=== PATIENT | female | born 1990 | race Caucasian/White ===

== ENCOUNTER 2016-05-24 00:55 | Inpatient (IN) | payer OTHER ==
[2016-05-24] VITALS (9 sets, daily range): BP systolic 103–136; BP diastolic 54–86; PULSE 63–100; TEMP 36.7–37; O2SAT 94–97; Ht 149.9 cm; Wt 81.6 kg
[~2016-05-24] VITALS: Ht 149.9 cm; Wt 81.6 kg
[~2016-05-24 00:55] MED LIST: LEVOIUD INT UTER; OMEP40CA PO
[2016-05-24] MEDS ORDERED: SODIUM CHLORIDE 0.9% 1000ML 1,000 ML IV SCH (01:11)
[2016-05-24] MEDS ORDERED: ONDANSETRON INJ 2 MG/ML 2 ML VIAL IV STA (01:17)
[2016-05-24] MEDS ORDERED: PROMETHAZINE HCL INJ 12.5 MG in SODIUM CHLORIDE 0.9% 50ML 50 ML IV STA (01:18)
[2016-05-24] MEDS ORDERED: ASPI-390 PO (01:36)
[2016-05-24 01:58] LABS: BASO % 0.2 %; BASO ABS # 0.02 K/uL (0-0.2); COMPLETE YES; EOS % 0.9 %; HEMATOCRIT 37.5 % (37-47); IG% 0.3 %; LYMPH % 24.6 %; LYMPH ABS # 2.28 K/uL (1.2-3.4); MEAN CELL VOLUME 85.6 fL (80-100); MEAN CORPUSCULAR HEMOGLOBIN 30.1 pg (25-34); MEAN CORPUSCULAR HGB CONC 35.2 g/dl (32-36); MEAN PLATELET VOLUME 11.3 fL (7.4-10.4); MONO % 5.3 %; NEUT % 68.7 %; PLATELET COUNT 200 K/uL (130-400); RED BLOOD COUNT 4.38 M/uL (4.2-5.4); WHITE BLOOD COUNT 9.27 K/uL (4.8-10.8)
[2016-05-24 02:07] LABS: PROTHROMBIN TIME (PATIENT) 10.9 SECONDS (9.0-12.0)
[2016-05-24 02:17] LABS: URINE APPEARANCE CLEAR (CLEAR); URINE BILIRUBIN NEG (NEG); URINE COLOR YELLOW; URINE NITRITE NEG (NEG); URINE PH 7.5 (4.5-7.5); URINE SPECIFIC GRAVITY 1.012 (1.000-1.030); UROBILINOGEN NEG (NEG); ZZUR CULT IF INDIC CLEAN CATCH NO
[2016-05-24 02:18] LABS: PREG INTERNAL NEGATIVE QC NEG CLEAR BACKGROUND; PREG INTERNAL POSITIVE QC POS CONTROL LINE
[2016-05-24 02:19] LABS: ALT/SGPT 34 U/L (12-78); AST/SGOT 14 U/L (15-37); BLOOD UREA NITROGEN 13 mg/dl (7-18); CALCIUM 8.2 mg/dl (8.5-10.1); CARBON DIOXIDE 26 mmol/L (21-32); CHLORIDE 107 mmol/L (98-107); CREATININE 0.73 mg/dl (0.60-1.20); GLUCOSE 105 mg/dl (70-99); POTASSIUM 3.3 mmol/L (3.5-5.1); SODIUM 143 mmol/L (136-145)
[2016-05-24 02:20] LABS: MANUAL MICROSCOPIC REQUIRED? NO; REVIEW REQ? NO
[2016-05-24 02:29] LABS: ALB/GLOB RATIO 1.3 (0.9-2); ALKALINE PHOSPHATASE 75 U/L (45-117)
[2016-05-24 02:36] LABS: BENZODIAZEPINE, URINE NEG (NEG); COCAINE,URINE NEG (NEG); PHENCYCLIDINE, URINE NEG (NEG)
[2016-05-24] MEDS ORDERED: MoRPHine SULFATE 4 MG/ML 1 ML CARP\\VIAL IV ONE (03:00)
[2016-05-24] MEDS ORDERED: XYLOCAINE 1%/SOD BICARB 20 ML VIAL INFIL ONE (03:00)
[2016-05-24 03:30] LABS: LYME DISEASE AB IGG NEG (NEG); LYME DISEASE AB IGM NEG (NEG)
--- NOTE | 2016-05-24 03:42 | EMERGENCY ROOM VISIT NOTE ---
ED Visit Note First contact with patient: 01:05 The patient presents with a headache and a change in mental status. A lumbar puncture was felt necessary. I discussed the risks and benefits with the patient. She did consent to the procedure. Lumbar puncture: Risks and benefits of the procedure were discussed. Patient was placed seated on the stretcher. Lumbar landmarks were identified. Betadine was used for prep. Sterile drapes were applied. Using sterile technique, lidocaine was used to anesthetize the lumbar area. Using sterile technique, I was able to access the spinal canal with a 22-gauge spinal needle. There were no complications. Fluid was collected for analysis and sent to the lab. Patient tolerated the procedure well.
[2016-05-24 04:02] LABS: CSF TOTAL PROTEIN 91.8 mg/dl (15.0-45.0)
[2016-05-24 04:40] LABS: CSF APPEARANCE CLEAR; CSF COLOR COLORLESS; CSF XANTHOCHROMIC NO XANTHOCHROMIA
[2016-05-24] MEDS ORDERED: CEFTRIAXONE SOD INJ 1 GM ADDVIAL IV STA (04:42)
[2016-05-24] MEDS ORDERED: VANCOMYCIN INJ 1,000 MG in SODIUM CHLORIDE 0.9% 250ML 250 ML IV STA (04:42)
[2016-05-24] MEDS ORDERED: ACYCLOVIR SOD IV ONE (04:45)
[2016-05-24] MEDS ORDERED: DEXTROSE 5% IV ONE (04:45)
[2016-05-24] MEDS ORDERED: DEXAMETHASONE SOD INJ 10 MG/ML VIAL IV ONE (04:45)
[2016-05-24] MEDS ORDERED: CEFTRIAXONE SOD INJ 1 GM in DEXTROSE 5% ADD-VANTAGE 50ML 50 ML IV STA (05:27)
[2016-05-24] MEDS ORDERED: GLUCOSE 40% GEL 15 GM TUBE PO PRN (05:30)
[2016-05-24] MEDS ORDERED: DEXTROSE 50% 50 ML SYR IV PRN (05:30)
[2016-05-24] MEDS ORDERED: LEVOFLOXACIN / D5W 750 MG in PREMIXED IN D5W 150 ML IV SCH (05:30)
[2016-05-24] MEDS ORDERED: DiphenhydrAMINE HCL 50 MG/ML VIAL IV PRN ×2 (05:30)
[2016-05-24] MEDS ORDERED: MoRPHine SULFATE 2 MG/ML CARP IV PRN (05:30)
[2016-05-24] MEDS ORDERED: GLUCAGON FOR INJ 1 MG VIAL SQ PRN (05:30)
[2016-05-24] MEDS ORDERED: GLUCOSE 10 TABS/TUBE PO PRN (05:30)
[2016-05-24] MEDS ORDERED: ONDANSETRON INJ 2 MG/ML 2 ML VIAL IV PRN (05:30)
[2016-05-24] MEDS ORDERED: VANCOMYCIN 1GM/270ML NSS ONE (05:35)
[2016-05-24] MEDS ORDERED: LORAZEPAM 2 MG/ML 1 ML VIAL IV PRN (05:45)
[2016-05-24] MEDS ORDERED: LEVONORGESTREL IU SCH (05:45)
--- NOTE | 2016-05-24 06:18 | History and Physical ---
History & Physical Date & Time of Service: May 24, 2016 at 06:03 Chief Complaint: Confused/Vomiting Primary Care Physician: No Doctor, Assigned History of Present Illness Source: patient, parent The patient is a 25 year old female who presents to the emergency department with altered mental status noted by her family at home. The patient has had a generalized headache for about a week, but no overt signs of illness otherwise. She was noted by her 4-year-old daughter, whom she usually sleeps with, to be disoriented and not acting herself. The daughter went to see the patient's , who confirmed her mental state with altered, and called EMS. She has not had any sick contacts, or had any recent travel. The patient herself, when she initially presented to the hospital was altered, but did progress to normalization by the time of my assessment. The patient does report generalized fatigue and weakness, and some mild light sensitivity. Past Medical/Surgical History Medical Problems: (1) induced hypertension Status: Resolved (2) Vaginal delivery Status: Resolved Social History Smoking Status: Unknown if Ever Smoked Smokeless Tobacco Use: No Alcohol Use: none Drug Use: none Marital Status: Housing status: lives with family Occupational Status: employed Immunizations History of Influenza Vaccine: Yes Influenza Vaccine Date: Dec 24, 2010 History of Tetanus Vaccine?: Unknown Multi-Drug Resistant Organisms History of MDRO: No Allergies Coded Allergies: No Known Allergies (Unverified , 05/24/16) Home Medications Scheduled Levonorgestrel (Iud) (Mirena), 1 DOSE INT UTER CONTINOUS Scheduled PRN Vaqdogi-Wykqjtkulyzrz-Jkdvnkww (Excedrin Migraine), 1 DOSE PO UD PRN for Migraine Review of Systems The patient denies chest pain, palpitations, shortness of breath, cough, lower extremity swelling, vision change, hearing change, sore throat, fevers, chills, sweats, weight change, nausea, vomiting, abdominal pain, pelvic pain, blood in urine or stool, dysuria, urinary frequency or urgency, memory loss, rash, abnormal bruising or bleeding, imbalance, focal weakness, numbness or tingling in arms or legs, arthralgias or myalgias, back or neck pain, night sweats, or allergy symptoms. The review of systems is otherwise negative other than for that already noted above, and at least 10 systems have been reviewed. Physical Exam Vital Signs Date Time Temp Pulse Resp B/P Pulse Ox O2 Delivery O2 Flow Rate FiO2 05/24/16 05:26 96 05/24/16 05:00 102 20 135/85 98 Room Air 05/24/16 04:01 94 20 118/74 97 Room Air 05/24/16 02:56 102 20 137/87 98 Room Air 05/24/16 01:44 108 20 144/98 98 Room Air 05/24/16 01:33 98 Room Air 05/24/16 01:24 117 05/24/16 01:14 36.9 116 20 139/91 98 Room Air The patient is awake, well-developed and adequately nourished, alert and oriented 3, normocephalic and atraumatic, lying in bed and in no acute distress. HEENT--PERRL, EOMI, mucous membranes and oropharynx dry. Neck--supple, no JVD or bruits, thyroid normal, trachea midline, no adenopathy. Heart--normal S1 and S2, no extra beats, no murmurs, rubs or gallops. Lungs--clear bilaterally with good air movement, no respiratory distress, no accessory muscle use. Abdomen--normal bowel sounds and soft, nontender and nondistended, no hernias or masses, no organomegaly. Extremities--no cyanosis, clubbing or edema. There are good distal pulses b/l. Dermatologic--normal skin turgor, normal color, warm and dry, no abnormal lymph nodes, no rash. Neurologic--cranial nerves II through XII grossly intact, motor and sensory examination normal. Rheumatologic--normal range of motion, nontender, muscles and joints. Psychiatric--normal affect. Diagnostics Laboratory Results Results Past 24 Hours Test 05/24/16 01:11 05/24/16 01:45 05/24/16 02:05 05/24/16 03:35 Range/Units Creatine Kinase MB Ratio 0-3.0 White Blood Count 9.27 4.8-10.8 K/uL Red Blood Count 4.38 4.2-5.4 M/uL Hemoglobin 13.2 12.0-16.0 g/dL Hematocrit 37.5 37-47 % Mean Corpuscular Volume 85.6 80-100 fL Mean Corpuscular Hemoglobin 30.1 25-34 pg Mean Corpuscular Hemoglobin Concent 35.2 32-36 g/dl Platelet Count 200 130-400 K/uL Mean Platelet Volume 11.3 7.4-10.4 fL Neutrophils (%) (Auto) 68.7 % Lymphocytes (%) (Auto) 24.6 % Monocytes (%) (Auto) 5.3 % Eosinophils (%) (Auto) 0.9 % Basophils (%) (Auto) 0.2 % Neutrophils # (Auto) 6.37 1.4-6.5 K/uL Lymphocytes # (Auto) 2.28 1.2-3.4 K/uL Monocytes # (Auto) 0.49 0.11-0.59 K/uL Eosinophils # (Auto) 0.08 0-0.5 K/uL Basophils # (Auto) 0.02 0-0.2 K/uL RDW Standard Deviation 39.3 36.4-46.3 fL RDW Coefficient of Variation 12.6 11.5-14.5 % Immature Granulocyte % (Auto) 0.3 % Immature Granulocyte # (Auto) 0.03 0.00-0.02 K/uL Prothrombin Time 10.9 9.0-12.0 SECONDS Prothromb Time International Ratio 1.0 0.9-1.1 Activated Partial Thromboplast Time 26.8 21.0-31.0 SECONDS Partial Thromboplastin Ratio 1.0 Sodium Level 143 136-145 mmol/L Potassium Level 3.3 3.5-5.1 mmol/L Chloride Level 107 98-107 mmol/L Carbon Dioxide Level 26 21-32 mmol/L Anion Gap 10.0 3-11 mmol/L Blood Urea Nitrogen 13 7-18 mg/dl Creatinine 0.73 0.60-1.20 mg/dl Est Creatinine Clear Calc Drug Dose 106.2 ml/min Estimated GFR () 131.7 Estimated GFR (Non- 113.7 BUN/Creatinine Ratio 18.0 10-20 Random Glucose 105 70-99 mg/dl Calcium Level 8.2 8.5-10.1 mg/dl Total Bilirubin 0.2 0.2-1 mg/dl Aspartate Amino Transf (AST/SGOT) 14 15-37 U/L Alanine Aminotransferase (ALT/SGPT) 34 12-78 U/L Alkaline Phosphatase 75 45-117 U/L Total Creatine Kinase 60 26-192 U/L Creatine Kinase MB < 0.5 0.5-3.6 ng/ml Troponin I < 0.015 0-0.045 ng/ml Total Protein 6.8 6.4-8.2 gm/dl Albumin 3.8 3.4-5.0 gm/dl Globulin 3.0 2.5-4.0 gm/dl Albumin/Globulin Ratio 1.3 0.9-2 Thyroid Stimulating Hormone (TSH) 3.800 0.300-4.500 uIu/ml Ethyl Alcohol mg/dL < 3.0 0-3 mg/dl Lyme Disease IgG Antibody NEG NEG Lyme Disease IgM Antibody NEG NEG Urine Color YELLOW Urine Appearance CLEAR CLEAR Urine pH 7.5 4.5-7.5 Urine Specific [place] 1.012 1.000-1.030 Urine Protein NEG NEG Urine Glucose (UA) NEG NEG Urine Ketones NEG NEG Urine Occult Blood NEG NEG Urine Nitrite NEG NEG Urine Bilirubin NEG NEG Urine Urobilinogen NEG NEG Urine Leukocyte Esterase NEG NEG Urine Test NEG NEG Urine Opiates Screen NEG NEG Urine Methadone, Qualitative NEG NEG Urine Barbiturates NEG NEG Urine Phencyclidine (PCP) Level NEG NEG Ur Amphetamine/Methamphetamine NEG NEG MDMA (Ecstasy) Screen NEG NEG Urine Benzodiazepines Screen NEG NEG Urine Cocaine Metabolite NEG NEG Urine Marijuana (THC) NEG NEG CSF Color COLORLESS CSF Appearance CLEAR CSF WBC 48 0-5 /uL CSF RBC 0 0 /uL CSF Polynuclear WBCs 0.0 % CSF Mononuclear WBCs 100.0 % CSF Xanthrochromic NO XANTHOCHROMIA CSF Cell Count Tube # 4 CSF Chemistry Tube # 2 CSF Glucose 52 40-70 mg/dl CSF Total Protein 91.8 15.0-45.0 mg/dl Test 05/24/16 05:44 Range/Units Microbiology Results 05/24/16 Gram Stain - Preliminary, Resulted 05/24/16 CSF Culture, Resulted Pending Diagnostic Radiology CT of the head was normal. Impression Assessment and Plan Meningitis--the patient will be admitted to the intensive care unit. She'll be placed on vancomycin IV per renal dosing, ceftriaxone 2 g IV every 12 hours, levofloxacin 750 mg IV every 24 hours, Decadron 6 mg IV every 6 hours, acyclovir 790 mg IV every 8 hours, Zofran 4 mg IV every 6 hours when necessary, Protonix 40 mg IV daily, acetaminophen 1 g IV every 8 hours when necessary, morphine sulfate 2-4 mg IV each hours when necessary, and normal saline with KCl 20 mEq at 100 ML's per hour. We'll follow serial CBC with differential, BMP , LFTs and magnesium level. We'll consult neurology, infectious disease and the shipping point inspector service. I have ordered an MRI of the brain with and without IV contrast. We'll place on Accu-Cheks before meals and at bedtime with NovoLog coverage due to possible hyperglycemia generated by IV Decadron. Left maxillary sinusitis--the patient has not been symptomatic, and will be covered with the above treatment. Hyperglycemia--blood sugar was 105 on admission laboratories. She'll be placed on Accu-Cheks before meals and at bedtime with NovoLog coverage as noted above. Hypokalemia--potassium level was 3.3 upon admission. She'll be placed on IV fluids as noted above, and will have repeat laboratories performed in the a.m. Level of Care Critical Care Advanced Directives Existing Advance Directive: No Existing Living Will: No Existing Power of Alternative Financing Specialist: No Resuscitation Status FULL RESUSCITATION VTE Prophylaxis Risk Level: Moderate Given or contraindicated: SCD's Social Service Consult None Apply Note Total Time: Critical Care 30 - 74 minutes
[2016-05-24] MEDS ORDERED: VANCOMYCIN CONSULT ACTIVE PRN (06:45)
[2016-05-24] MEDS: MoRPHine SULFATE 4 MG/ML 1 ML CARP\\VIAL IV PRN ×2 (06:56→16:53)
--- NOTE | 2016-05-24 07:03 | EMERGENCY ROOM VISIT NOTE ---
History First contact with patient: 01:05 Chief Complaint: CONFUSION Stated Complaint: CONFUSED/VOMITING Nursing Triage Summary: Patient arrived to ED via ALS for altered mental status. Per family, patient sleeps with 4 year old daughter. Patient awoke around 2350 and was noted to be confused, not acting appropriately, staring, and stated that she could not feel her right leg and that it was numb. Upon arrival, patient exhibited slurred speak. Patient is shaky at this time. Patient moving all exrtremitied. Weakness noted in bilateral legs. Patient is not acting appropriately, very slow to respond to questions. Vomiting upon arrival to ED. Per family, patient has uncontrolled HTN and is non-compliant with medications, states that she has a constant headache from BP, states that she is taking tylenol/ibuprofen hourly. History of Present Illness The patient is a 25 year old female who presents to the Emergency Room for evaluation of altered mental status. The patient typically sleeps with her 4- year-old daughter, and the daughter awoke around 90 minutes prior to arrival, and noted her mom to be not responsive. The daughter got her father, and the patient was slurring her speech and had weakness on the right side of her body. The patient was initially placed into the family vehicle who started to drive towards the hospital, however the patient had worsening of her symptoms and had several episodes of emesis. At that point they stopped and contacted 911, and the patient presents now by ambulance. The patient on presentation is quite confused and answers questions with one-word answers. She does not have appreciable facial droop or extremity weakness. Family members assist in the history and do not report recent travel history or illness. No recent sick contacts. The patient is reportedly otherwise healthy, but has had a migraine headache for the past week to week and a half. She has been taking NSAIDs at home for this with only minimal improvement. Review of Systems More than 10 systems were reviewed and otherwise negative with the exception of history of present illness. Past Medical/Surgical History Medical Problems: (1) Altered mental status (2) Meningitis (3) induced hypertension (4) Vaginal delivery Family History No pertinent family history Social History Smoking Status: Unknown if Ever Smoked Smokeless Tobacco Use: No Alcohol Use: none Drug Use: none Marital Status: Housing Status: lives with family Occupation Status: employed Current/Historical Medications Scheduled Levonorgestrel (Iud) (Mirena), 1 DOSE INT UTER CONTINOUS Scheduled PRN Wizjlwb-Jqxtbonuvzoje-Zxwhqyuy (Excedrin Migraine), 1 DOSE PO UD PRN for Migraine Allergies Coded Allergies: No Known Allergies (Unverified , 05/24/16) Physical Exam Vital Signs Date Time Temp Pulse Resp B/P Pulse Ox O2 Delivery O2 Flow Rate FiO2 05/24/16 06:00 104 20 114/71 96 Room Air 05/24/16 05:26 96 05/24/16 05:00 102 20 135/85 98 Room Air 05/24/16 04:01 94 20 118/74 97 Room Air 05/24/16 02:56 102 20 137/87 98 Room Air 05/24/16 01:44 108 20 144/98 98 Room Air 05/24/16 01:33 98 Room Air 05/24/16 01:24 117 05/24/16 01:14 36.9 116 20 139/91 98 Room Air Physical Exam VITALS: Vitals are noted on the nurse's note and reviewed by myself. Vital signs stable. GENERAL: Very confused appearing white female. She has difficulty with responding to simple questions. HEAD: Normocephalic atraumatic. EARS: External ear normal. External auditory canals clear, tympanic membranes pearly eller without erythema or effusion bilaterally. EYES: Pupils equal round and reactive to light and accommodation. Conjunctivae without injection, sclerae without icterus. Extraocular movements intact. NOSE: Patent, turbinates without inflammation or discharge. MOUTH: Mucous membranes moist. Tonsils are not enlarged. Pharynx without erythema, blood, or exudate. Uvula midline. Airway patent. NECK: Supple without nuchal rigidity. No lymphadenopathy. No thyromegaly. Cervical spine is not reportedly tender HEART: Regular rate and rhythm without murmurs gallops or rubs. LUNGS: Clear to auscultation bilaterally without wheezes, rales or rhonchi. No retractions or accessory muscle use. ABDOMEN: Positive normal bowel sounds x 4. Soft, nontender, without masses or organomegaly. No guarding or rebound tenderness. MUSCULOSKELETAL: No muscle atrophy, erythema, or edema noted. No obvious extremity weakness. Mechanic Sound Technician strength is 2/5 bilateral. NEURO: Patient was confused and not oriented to person, place, or time. GCS 12. ([id number]) SKIN: The skin was without rashes, erythema, edema, or bruising. Capillary reflex less than 2 seconds. Medical Decision & Procedures ER Provider Diagnostic Interpretation: Preliminary Findings Only See Final Report For Complete Findings CT HEAD: Comparison: CT dated 10/05/2012. No evidence of acute intracranial abnormality. Air-fluid level in the left maxillary sinus suspicious for acute sinusitis. Correlate clinically. Laboratory Results 05/24/16 01:45 Red Blood Count 4.38, Mean Corpuscular Volume 85.6, Mean Corpuscular Hemoglobin 30.1, Mean Corpuscular Hemoglobin Concent 35.2, Mean Platelet Volume 11.3, Neutrophils (%) (Auto) 68.7, Lymphocytes (%) (Auto) 24.6, Monocytes (%) (Auto) 5.3, Eosinophils (%) (Auto) 0.9, Basophils (%) (Auto) 0.2, Neutrophils # (Auto) 6.37, Lymphocytes # (Auto) 2.28, Monocytes # (Auto) 0.49, Eosinophils # (Auto) 0.08, Basophils # (Auto) 0.02 05/24/16 01:45 Test 05/24/16 01:45 05/24/16 02:05 05/24/16 03:35 White Blood Count 9.27 K/uL (4.8-10.8) Red Blood Count 4.38 M/uL (4.2-5.4) Hemoglobin 13.2 g/dL (12.0-16.0) Hematocrit 37.5 % (37-47) Mean Corpuscular Volume 85.6 fL (80-100) Mean Corpuscular Hemoglobin 30.1 pg (25-34) Mean Corpuscular Hemoglobin Concent 35.2 g/dl (32-36) Platelet Count 200 K/uL (130-400) Mean Platelet Volume 11.3 fL (7.4-10.4) Neutrophils (%) (Auto) 68.7 % Lymphocytes (%) (Auto) 24.6 % Monocytes (%) (Auto) 5.3 % Eosinophils (%) (Auto) 0.9 % Basophils (%) (Auto) 0.2 % Neutrophils # (Auto) 6.37 K/uL (1.4-6.5) Lymphocytes # (Auto) 2.28 K/uL (1.2-3.4) Monocytes # (Auto) 0.49 K/uL (0.11-0.59) Eosinophils # (Auto) 0.08 K/uL (0-0.5) Basophils # (Auto) 0.02 K/uL (0-0.2) RDW Standard Deviation 39.3 fL (36.4-46.3) RDW Coefficient of Variation 12.6 % (11.5-14.5) Immature Granulocyte % (Auto) 0.3 % Immature Granulocyte # (Auto) 0.03 K/uL (0.00-0.02) Prothrombin Time 10.9 SECONDS (9.0-12.0) Prothromb Time International Ratio 1.0 (0.9-1.1) Activated Partial Thromboplast Time 26.8 SECONDS (21.0-31.0) Partial Thromboplastin Ratio 1.0 Anion Gap 10.0 mmol/L (3-11) Est Creatinine Clear Calc Drug Dose 106.2 ml/min Estimated GFR () 131.7 Estimated GFR (Non- 113.7 BUN/Creatinine Ratio 18.0 (10-20) Calcium Level 8.2 mg/dl (8.5-10.1) Magnesium Level 1.7 mg/dl (1.8-2.4) Total Bilirubin 0.2 mg/dl (0.2-1) Aspartate Amino Transf (AST/SGOT) 14 U/L (15-37) Alanine Aminotransferase (ALT/SGPT) 34 U/L (12-78) Alkaline Phosphatase 75 U/L (45-117) Total Creatine Kinase 60 U/L (26-192) Creatine Kinase MB < 0.5 ng/ml (0.5-3.6) Creatine Kinase MB Ratio (0-3.0) Troponin I < 0.015 ng/ml (0-0.045) Total Protein 6.8 gm/dl (6.4-8.2) Albumin 3.8 gm/dl (3.4-5.0) Globulin 3.0 gm/dl (2.5-4.0) Albumin/Globulin Ratio 1.3 (0.9-2) Thyroid Stimulating Hormone (TSH) 3.800 uIu/ml (0.300-4.500) Ethyl Alcohol mg/dL < 3.0 mg/dl (0-3) Lyme Disease IgG Antibody NEG (NEG) Lyme Disease IgM Antibody NEG (NEG) Urine Color YELLOW Urine Appearance CLEAR (CLEAR) Urine pH 7.5 (4.5-7.5) Urine Specific [place] 1.012 (1.000-1.030) Urine Protein NEG (NEG) Urine Glucose (UA) NEG (NEG) Urine Ketones NEG (NEG) Urine Occult Blood NEG (NEG) Urine Nitrite NEG (NEG) Urine Bilirubin NEG (NEG) Urine Urobilinogen NEG (NEG) Urine Leukocyte Esterase NEG (NEG) Urine Test NEG (NEG) Urine Opiates Screen NEG (NEG) Urine Methadone, Qualitative NEG (NEG) Urine Barbiturates NEG (NEG) Urine Phencyclidine (PCP) Level NEG (NEG) Ur Amphetamine/Methamphetamine NEG (NEG) MDMA (Ecstasy) Screen NEG (NEG) Urine Benzodiazepines Screen NEG (NEG) Urine Cocaine Metabolite NEG (NEG) Urine Marijuana (THC) NEG (NEG) CSF Color COLORLESS CSF Appearance CLEAR CSF WBC 48 /uL (0-5) CSF RBC 0 /uL (0) CSF Polynuclear WBCs 0.0 % CSF Mononuclear WBCs 100.0 % CSF Xanthrochromic NO XANTHOCHROMIA CSF Cell Count Tube # 4 CSF Chemistry Tube # 2 CSF Glucose 52 mg/dl (40-70) CSF Total Protein 91.8 mg/dl (15.0-45.0) Medications Administered Medications (Trade) Dose Ordered Sig/Joshua Route Start Time Stop Time Status Last Admin Dose Admin Sodium Chloride 1,000 ml @ 50 mls/hr Q20H IV 05/24/16 01:11 05/24/16 06:33 DC 05/24/16 01:10 50 MLS/HR Promethazine HCl/ Sodium Chloride (Phenergan Inj/ Nss 50ml) 50.5 ml @ 204 mls/hr NOW STAT IV 05/24/16 01:18 05/24/16 01:32 DC 05/24/16 01:10 204 MLS/HR Morphine Sulfate (MoRPHine SULFATE INJ) 4 mg NOW ONCE IV 05/24/16 03:00 05/24/16 03:02 DC 05/24/16 03:08 4 MG Lidocaine HCl (Buffered Lidocaine 1% Inj) 20 ml NOW ONCE INFIL 05/24/16 03:00 05/24/16 03:02 DC 05/24/16 03:10 20 ML Dexamethasone Sodium Phosphate (Decadron Inj) 10 mg NOW ONCE IV 05/24/16 04:45 05/24/16 04:47 DC 05/24/16 04:45 10 MG Ceftriaxone Sodium 1 gm 1 gm NOW STAT IV 05/24/16 04:42 05/24/16 04:47 DC 05/24/16 05:05 1 GM Acyclovir Sodium/ Dextrose (Zovirax Inj/D5 250ml) 265.8 ml @ 265 mls/hr NOW ONCE IV 05/24/16 04:45 05/24/16 05:45 DC 05/24/16 05:45 265 MLS/HR Vancomycin HCl 1 gm 1 gm STK-MED ONCE .ROUTE 05/24/16 05:35 05/24/16 05:36 DC 05/24/16 05:46 1 GM Ceftriaxone Sodium/Dextrose (Rocephin Inj/ Dextrose Add-[place] 50ML) 50 ml @ 100 mls/hr ONE STAT IV 05/24/16 05:27 05/24/16 05:56 DC 05/24/16 05:46 100 MLS/HR ED Course Physical exam and history were performed. Nursing notes and EMR were reviewed. Patient appears to have altered mental status for the past 90 minutes. On examination the patient appears confused and has difficulty answering questions with more than one word. The patient exam is somewhat limited secondary to her status. IV access was established and labs were obtained. The patient did have vomiting prehospital and was given normal saline and IV Phenergan for her symptoms. The patient was rapidly sent to CT scan for her symptoms. The case was discussed with my attending physician, Dr. Stoll, who remained closely involved in patient care and decision making. The patient blood work is as above and was reviewed. The patient does not have a significantly elevated blood cell count or gross anemia, bandemia, or significant electrolyte imbalance. Her ethyl alcohol is 0. Drug abuse screen is negative. She does not have obvious sign of UTI. . Chest x-ray is without obvious acute process. The CT scan appears to show no intracranial abnormality , but does mention a right maxillary sinusitis. The patient was reevaluated multiple times with course of her stay. After the first 60 minutes of her stay she did have some mild improvement of her mental status. She was able to stand and walk to the bathroom. The patient was able to answer questions more in depth, and she does not recall the events over the past few hours well. She does report having a persisting headache, that is posterior, but does not have distinct neck pain. On further evaluation the patient had seemed to plateau with her mental status, and then regressed to be more confused. Upon discussing this with Dr. Stoll, we elected to perform a lumbar puncture. This was performed by Dr. Stoll and I direct you to his note for specifics regarding the procedure. Ultimately the patient had elevated protein and elevated white blood cells in her CSF. Because of this the patient was given IV Rocephin, IV vancomycin, IV acyclovir, and IV Decadron. She was placed in contact precautions. We have concern the patient has meningitis, likely from a viral source. The case was discussed with the on-call hospitalist, Dr. Choudhary, who agreed to evaluate the patient here in the emergency department. Please see Dr. Choudhary's dictation for further patient course, plan, and disposition. The chart was completed utilizing [employer] Voice Recognition Software. Grammatical errors, random word insertions, pronoun errors, and incomplete sentences are an occasional consequence of this system due to software limitations, ambient noise, and hardware issues. Any formal questions or concerns about the content, text, or information contained within the body of this dictation should be directly addressed to the provider for clarification. . Medical Decision Differential diagnosis: Etiologies such as metabolic, infection, hypoglycemia, electrolyte abnormalities , cardiac sources, intracerebral event, toxicologic, neurologic, as well as others were entertained. Impression Primary Impression: Meningitis Additional Impression: Altered mental status Critical Care I have personally spent greater than 60 minutes of critical care time in the direct management of this patient. This includes bedside care, interpretation of diagnostic studies, and testing, discussion with consultants, patient, and family members, and other required patient management activities. This 60 minutes is in excess of all separately billable procedures. Departure Information Referrals No Doctor, Assigned (PCP) Patient Instructions My [facility] Problem Qualifiers Additional Impression:
--- NOTE | 2016-05-24 07:30 | DIAGNOSTIC IMAGING REPORT ---
HEAD CT NONCONTRAST CT DOSE: 537.48 mGy.cm HISTORY: Altered mental status TECHNIQUE: Multiaxial CT images of the head were performed without the use of intravenous contrast. Automated exposure control was utilized for this study. Comparison: None. Findings: Air-fluid level within the left maxillary sinus. The mastoid air cells are clear. The calvarium and skull base are intact. The ventricles and sulci are within normal limits. There is no mass, hematoma, midline shift, or acute infarct. Impression: No acute intracranial abnormality. Acute left maxillary sinusitis. Electronically signed by: Babatunde Peña M.D. 05/24/2016 7:29 AM Dictated Date/Time: 05/24/2016 7:27 AM
--- NOTE | 2016-05-24 08:14 | DIAGNOSTIC IMAGING REPORT ---
MRI OF THE BRAIN WITHOUT AND WITH IV CONTRAST CLINICAL HISTORY: meningitis headache COMPARISON STUDY: No previous studies for comparison. TECHNIQUE: Utilizing a 1.5 Andria magnet and dedicated coil, multiplanar, multiecho imaging of the brain was performed pre and postcontrast administration. IV administration of 8.5 mL of Gadavist contrast was uneventful. FINDINGS: Diffusion-weighted images are unremarkable. No evidence for an acute ischemic event. Signal characteristics are unremarkable. No significant postcontrast enhancement. IMPRESSION: Normal study. Electronically signed by: Valentín Tong M.D. 05/24/2016 8:13 AM Dictated Date/Time: 05/24/2016 8:10 AM
--- NOTE | 2016-05-24 08:26 | DIAGNOSTIC IMAGING REPORT ---
CHEST ONE VIEW PORTABLE HISTORY: meningitis COMPARISON: None. FINDINGS: The lungs are clear. Cardiac silhouette is normal in size. No pleural effusions. No pneumothorax. IMPRESSION: No acute process. Electronically signed by: Babatunde Peña M.D. 05/24/2016 8:24 AM Dictated Date/Time: 05/24/2016 8:23 AM
[2016-05-24] MEDS ORDERED: ACYCLOVIR CONSULT ACTIVE PRN (08:30)
[2016-05-24] MEDS ORDERED: DEXAMETHASONE INJ 6 MG in SYRINGE 0 ML IV SCH (10:00)
--- NOTE | 2016-05-24 10:22 | Neurology Consultation ---
Neurology Consultation Date of Consultation: May 24, 2016. Attending Physician: Rex Rob M.D. Primary Care Physician: No Doctor, Assigned Reason for Consultation: Consultation for meningitis History of Present Illness Source: patient, hospital records This is a 25-year-old female who has been having an abnormal headache for the last week. She denies any significant headache history. Denies any migraine history. Apparently before presentation started to have confusion and was brought into the emergency room last night. Patient denies feeling sick or feverish. 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 She reports having a single episode of some paresthesias on the right arm and leg that have resolved. No seizures. No other events concerning for strokelike symptoms. Patient describes the headaches as mostly left-sided and focused around her left eye with some sensitivity. Had has had some symptoms of sinusitis Lumbar puncture was done in the emergency room. Has an elevated white cell count and normal glucose. Protein was also noted to be mildly elevated. Past Medical/Surgical History Patient denies any past medical history Family History Noncontributory Social History Patient is normally independent in her activities of daily living. Works in a daycare. Smoking Status: Former smoker Smokeless Tobacco Use: No Alcohol Use: none Drug Use: none Marital Status: Housing Status: lives with family Occupation Status: employed Allergies Coded Allergies: No Known Allergies (Unverified , 05/24/16) Current Inpatient Medications Current Inpatient Medications Medications (Trade) Dose Ordered Sig/Joshua Route Start Time Stop Time Status Last Admin Dose Admin Vancomycin HCl 1500 mg/Sodium Chloride 530 ml @ 200 mls/hr Q12H IV 05/24/16 10:00 06/03/16 09:59 Ceftriaxone Sodium 2000 mg/ Dextrose 70 ml @ 100 mls/hr Q12H IV 05/24/16 16:00 06/03/16 15:59 Acetaminophen (Ofirmev Iv) 100 ml @ 400 mls/hr Q8H PRN IV 05/24/16 05:30 06/23/16 05:29 Ondansetron HCl (Zofran Inj) 4 mg Q6H PRN IV 05/24/16 05:30 06/23/16 05:29 Insulin Aspart (novoLOG ASPART) SLIDING SCALE If C... ACHS SC 05/24/16 08:45 06/23/16 08:44 Glucose (Glucose 40% Gel) UD PRN PO 05/24/16 05:30 06/23/16 05:29 Glucose (Glucose Chew Tab) 1 tabs UD PRN PO 05/24/16 05:30 06/23/16 05:29 Dextrose (Dextrose 50% 50ML Syringe) 50 ml UD PRN IV 05/24/16 05:30 06/23/16 05:29 Glucagon (Glucagon Inj) 1 mg UD PRN SQ 05/24/16 05:30 06/23/16 05:29 Diphenhydramine HCl 25 mg 25 mg Q4H PRN IV 05/24/16 05:30 06/23/16 05:29 Potassium Chloride/Sodium Chloride (Nss + 20meq KCl 1000ml) 1,000 ml @ 100 mls/hr Q10H IV 05/24/16 08:45 06/23/16 08:44 Morphine Sulfate (MoRPHine SULFATE INJ) 2 mg Q2H PRN IV 05/24/16 05:30 06/07/16 05:29 Morphine Sulfate (MoRPHine SULFATE INJ) 4 mg Q2H PRN IV 05/24/16 05:30 06/07/16 05:29 05/24/16 06:56 4 MG Lorazepam (Ativan Inj) 0.5 mg Q4H PRN IV 05/24/16 05:45 06/23/16 05:44 Levonorgestrel (Mirena (Iud)) 1 ea CONTINOUS IU 05/24/16 05:45 06/23/16 05:44 Vancomycin HCl (Consult) 1 ea UD PRN N/A 05/24/16 06:45 06/23/16 06:44 Acyclovir Sodium 1 ea 1 ea UD PRN N/A 05/24/16 08:30 06/23/16 08:29 Acyclovir Sodium/ Dextrose (Zovirax Inj/D5 100ml) 108.6 ml @ 108.6 mls/ hr Q8H IV 05/24/16 16:00 06/03/16 05:59 Review of Systems Except for the above noted in history of present illness, complete review of systems otherwise negative Physical Exam Vital Signs (Past 24 Hrs): Date Time Temp Pulse Resp B/P Pulse Ox O2 Delivery O2 Flow Rate FiO2 05/24/16 07:25 113 24 130/71 96 05/24/16 06:00 104 20 114/71 96 Room Air 05/24/16 05:26 96 05/24/16 05:00 102 20 135/85 98 Room Air 05/24/16 04:01 94 20 118/74 97 Room Air 05/24/16 02:56 102 20 137/87 98 Room Air 05/24/16 01:44 108 20 144/98 98 Room Air 05/24/16 01:33 98 Room Air 05/24/16 01:24 117 05/24/16 01:14 36.9 116 20 139/91 98 Room Air Gen.: Patient is alert and sitting in bed, in no acute distress. HEENT: Normocephalic /atraumatic, no scleral icterus Heart: Regular rate and rhythm Extremities: No gross deformities or rashes noted Neurological examination: Mental status: Patient is alert and oriented x3. Attention and concentration normal for the situation. Good fund of knowledge. Able to give her own history. Speech is fluent without any dysarthria or aphasia noted Cranial nerve: Funduscopic examination was unremarkable. No papilledema. Pupils equally round and reactive to light. Extraocular muscles intact without nystagmus. No facial asymmetry noted. Facial sensation intact. Tongue is midline. Good palatal elevation. Good shoulder shrug bilaterally. Hearing grossly intact to voice. Strength: 5/5 both proximal and distally in all extremities. There is no arm drift. Tone is normal. Sensation: Grossly intact to light touch in all extremities. Deep tendon reflexes: +2 in bilateral brachioradialis and patellar. Toes were downgoing to plantar stimulation Coordination: Patient had good finger to nose without dysmetria Station within the bed was normal Laboratory Results Past 24 Hours: 05/24/16 01:45 Red Blood Count 4.38, Mean Corpuscular Volume 85.6, Mean Corpuscular Hemoglobin 30.1, Mean Corpuscular Hemoglobin Concent 35.2, Mean Platelet Volume 11.3, Neutrophils (%) (Auto) 68.7, Lymphocytes (%) (Auto) 24.6, Monocytes (%) (Auto) 5.3, Eosinophils (%) (Auto) 0.9, Basophils (%) (Auto) 0.2, Neutrophils # (Auto) 6.37, Lymphocytes # (Auto) 2.28, Monocytes # (Auto) 0.49, Eosinophils # (Auto) 0.08, Basophils # (Auto) 0.02 05/24/16 01:45 Test 05/24/16 01:45 05/24/16 02:05 05/24/16 03:35 05/24/16 09:10 White Blood Count 9.27 K/uL (4.8-10.8) Red Blood Count 4.38 M/uL (4.2-5.4) Hemoglobin 13.2 g/dL (12.0-16.0) Hematocrit 37.5 % (37-47) Mean Corpuscular Volume 85.6 fL (80-100) Mean Corpuscular Hemoglobin 30.1 pg (25-34) Mean Corpuscular Hemoglobin Concent 35.2 g/dl (32-36) Platelet Count 200 K/uL (130-400) Mean Platelet Volume 11.3 fL (7.4-10.4) Neutrophils (%) (Auto) 68.7 % Lymphocytes (%) (Auto) 24.6 % Monocytes (%) (Auto) 5.3 % Eosinophils (%) (Auto) 0.9 % Basophils (%) (Auto) 0.2 % Neutrophils # (Auto) 6.37 K/uL (1.4-6.5) Lymphocytes # (Auto) 2.28 K/uL (1.2-3.4) Monocytes # (Auto) 0.49 K/uL (0.11-0.59) Eosinophils # (Auto) 0.08 K/uL (0-0.5) Basophils # (Auto) 0.02 K/uL (0-0.2) RDW Standard Deviation 39.3 fL (36.4-46.3) RDW Coefficient of Variation 12.6 % (11.5-14.5) Immature Granulocyte % (Auto) 0.3 % Immature Granulocyte # (Auto) 0.03 K/uL (0.00-0.02) Prothrombin Time 10.9 SECONDS (9.0-12.0) Prothromb Time International Ratio 1.0 (0.9-1.1) Activated Partial Thromboplast Time 26.8 SECONDS (21.0-31.0) Partial Thromboplastin Ratio 1.0 Anion Gap 10.0 mmol/L (3-11) Est Creatinine Clear Calc Drug Dose 106.2 ml/min Estimated GFR () 131.7 Estimated GFR (Non- 113.7 BUN/Creatinine Ratio 18.0 (10-20) Calcium Level 8.2 mg/dl (8.5-10.1) Magnesium Level 1.7 mg/dl (1.8-2.4) Total Bilirubin 0.2 mg/dl (0.2-1) Aspartate Amino Transf (AST/SGOT) 14 U/L (15-37) Alanine Aminotransferase (ALT/SGPT) 34 U/L (12-78) Alkaline Phosphatase 75 U/L (45-117) Total Creatine Kinase 60 U/L (26-192) Creatine Kinase MB < 0.5 ng/ml (0.5-3.6) Creatine Kinase MB Ratio (0-3.0) Troponin I < 0.015 ng/ml (0-0.045) Total Protein 6.8 gm/dl (6.4-8.2) Albumin 3.8 gm/dl (3.4-5.0) Globulin 3.0 gm/dl (2.5-4.0) Albumin/Globulin Ratio 1.3 (0.9-2) Thyroid Stimulating Hormone (TSH) 3.800 uIu/ml (0.300-4.500) Ethyl Alcohol mg/dL < 3.0 mg/dl (0-3) Lyme Disease IgG Antibody NEG (NEG) Lyme Disease IgM Antibody NEG (NEG) Urine Color YELLOW Urine Appearance CLEAR (CLEAR) Urine pH 7.5 (4.5-7.5) Urine Specific [place] 1.012 (1.000-1.030) Urine Protein NEG (NEG) Urine Glucose (UA) NEG (NEG) Urine Ketones NEG (NEG) Urine Occult Blood NEG (NEG) Urine Nitrite NEG (NEG) Urine Bilirubin NEG (NEG) Urine Urobilinogen NEG (NEG) Urine Leukocyte Esterase NEG (NEG) Urine Test NEG (NEG) Urine Opiates Screen NEG (NEG) Urine Methadone, Qualitative NEG (NEG) Urine Barbiturates NEG (NEG) Urine Phencyclidine (PCP) Level NEG (NEG) Ur Amphetamine/Methamphetamine NEG (NEG) MDMA (Ecstasy) Screen NEG (NEG) Urine Benzodiazepines Screen NEG (NEG) Urine Cocaine Metabolite NEG (NEG) Urine Marijuana (THC) NEG (NEG) CSF Color COLORLESS CSF Appearance CLEAR CSF WBC 48 /uL (0-5) CSF RBC 0 /uL (0) CSF Polynuclear WBCs 0.0 % CSF Mononuclear WBCs 100.0 % CSF Xanthrochromic NO XANTHOCHROMIA CSF Cell Count Tube # 4 CSF Chemistry Tube # 2 CSF Glucose 52 mg/dl (40-70) CSF Total Protein 91.8 mg/dl (15.0-45.0) Imaging MRI of the brain reported images were reviewed by myself and is normal Impression This is a 25-year-old female with what appears to be an uncomplicated viral meningitis. Mental status appears appropriate this time. Neurological exam is normal. Plan Anticipate good recovery without any neurological side effects. Meningitis treatment per primary care team. No additional neurological recommendations at this time. If there is any questions or concerns, feel free to call/page me.
[2016-05-24] MEDS ORDERED: PANTOprazole INJ 40 MG in SYRINGE 0 ML IV SCH (11:00)
[2016-05-24] MEDS: INSULIN ASPART 100 UNITS/ML 3 ML PEN SC SCH ×3 (11:00→20:29)
--- NOTE | 2016-05-24 11:04 | Critical Care Consultation ---
Critical Care Consultation Date of Consultation: May 24, 2016. Attending Physician: Rex Rob M.D. Reason for Consultation: Meningitis History of Present Illness 25-year-old female with past medical history of hypertension presented to the ED after she she had an episode of confusion last night. 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 She also had episodes of vomiting but denied any photophobia. Last night when she was sleeping next to her daughter, she was found to be disoriented and confused and she reported having right-sided motor weakness , numbness and tingling especially in the lower extremity . She continued to have episodes of vomiting and she was brought to the ER . Lumbar puncture was done in the ER which revealed an elevated white count in the CSF. She was admitted to the ICU for further management. She had denied any fevers or chills, rashes, cold sores, upper respiratory tract infections recently. Denied any sick contacts or recent travel. She is currently alert awake and oriented, continues to have a headache and neck stiffness which is somewhat better. Denies any fevers with chills, photophobia, blurriness of vision, dizziness or slurring of speech. The right-sided weakness is better now . Past Medical/Surgical History Hypertension diagnosed at age 12 ( noncompliant with medication) Social History Smoking Status: Unknown if Ever Smoked Smokeless Tobacco Use: No Alcohol Use: none Drug Use: none Marital Status: Housing Status: lives with family Occupation Status: employed Allergies Coded Allergies: No Known Allergies (Unverified , 05/24/16) Home Medications Scheduled Levonorgestrel (Iud) (Mirena), 1 DOSE INT UTER CONTINOUS Scheduled PRN Owimdpj-Qcfzlebyyqnnh-Crwxdziz (Excedrin Migraine), 1 DOSE PO UD PRN for Migraine Current Inpatient Medications Current Inpatient Medications Medications (Trade) Dose Ordered Sig/Joshua Route Start Time Stop Time Status Last Admin Dose Admin Vancomycin HCl 1500 mg/Sodium Chloride 530 ml @ 200 mls/hr Q12H IV 05/24/16 10:00 06/03/16 09:59 Ceftriaxone Sodium 2000 mg/ Dextrose 70 ml @ 100 mls/hr Q12H IV 05/24/16 16:00 06/03/16 15:59 Acetaminophen (Ofirmev Iv) 100 ml @ 400 mls/hr Q8H PRN IV 05/24/16 05:30 06/23/16 05:29 Ondansetron HCl (Zofran Inj) 4 mg Q6H PRN IV 05/24/16 05:30 06/23/16 05:29 Insulin Aspart (novoLOG ASPART) SLIDING SCALE If C... ACHS SC 05/24/16 08:45 06/23/16 08:44 Glucose (Glucose 40% Gel) UD PRN PO 05/24/16 05:30 06/23/16 05:29 Glucose (Glucose Chew Tab) 1 tabs UD PRN PO 05/24/16 05:30 06/23/16 05:29 Dextrose (Dextrose 50% 50ML Syringe) 50 ml UD PRN IV 05/24/16 05:30 06/23/16 05:29 Glucagon (Glucagon Inj) 1 mg UD PRN SQ 05/24/16 05:30 06/23/16 05:29 Diphenhydramine HCl 25 mg 25 mg Q4H PRN IV 05/24/16 05:30 06/23/16 05:29 Potassium Chloride/Sodium Chloride (Nss + 20meq KCl 1000ml) 1,000 ml @ 100 mls/hr Q10H IV 05/24/16 08:45 06/23/16 08:44 Morphine Sulfate (MoRPHine SULFATE INJ) 2 mg Q2H PRN IV 05/24/16 05:30 06/07/16 05:29 Morphine Sulfate (MoRPHine SULFATE INJ) 4 mg Q2H PRN IV 05/24/16 05:30 06/07/16 05:29 05/24/16 06:56 4 MG Lorazepam (Ativan Inj) 0.5 mg Q4H PRN IV 05/24/16 05:45 06/23/16 05:44 Levonorgestrel (Mirena (Iud)) 1 ea CONTINOUS IU 05/24/16 05:45 06/23/16 05:44 Vancomycin HCl (Consult) 1 ea UD PRN N/A 05/24/16 06:45 06/23/16 06:44 Acyclovir Sodium 1 ea 1 ea UD PRN N/A 05/24/16 08:30 06/23/16 08:29 Acyclovir Sodium 430 mg/Dextrose 108.6 ml @ 108.6 mls/ hr Q8H IV 05/24/16 16:00 06/03/16 05:59 Magnesium Sulfate/ Prmx (Magnesium Sulfate/Premixed D5W) 100 ml @ 100 mls/hr Q1H IV 05/24/16 11:00 05/24/16 12:59 Review of Systems Constitutional: No chills, No fever Eyes: No worsening of vision ENT: No hearing loss Respiratory: No cough, No dyspnea on exertion, No shortness of breath, No sputum Cardiovascular: No chest pain Abdomen: No nausea, No pain, No vomiting Musculoskeletal: No joint pain Genitourinary - Female: No dysuria, No urinary frequency Neurologic: + problem reported (neck stiffness and headache), No memory loss, No paralysis Physical Exam Date Time Temp Pulse Resp B/P Pulse Ox O2 Delivery O2 Flow Rate FiO2 05/24/16 07:25 113 24 130/71 96 05/24/16 06:00 104 20 114/71 96 Room Air 05/24/16 05:26 96 05/24/16 05:00 102 20 135/85 98 Room Air 05/24/16 04:01 94 20 118/74 97 Room Air 05/24/16 02:56 102 20 137/87 98 Room Air 05/24/16 01:44 108 20 144/98 98 Room Air 05/24/16 01:33 98 Room Air 05/24/16 01:24 117 05/24/16 01:14 36.9 116 20 139/91 98 Room Air General Appearance: well-appearing, WD/WN, no apparent distress Eyes: PERRLA, EOMI ENT: normal mouth exam Neck: trachea midline, supple Respiratory: breath sounds normal, no respiratory distress Cardiovasular: regular rate/rhythm, normal S1S2, no murmur Abdomen: non tender, normal bowel sounds, no rebound, no masses, no guarding Back: normal inspection, normal range of motion Upper Extremities: no edema, normal ROM Lower Extremities: no edema, no deformity, normal ROM Neuro: alert, oriented x 3, normal motor exam, normal sensation, normal speech , normal memory Laboratory Results Last 24 Hours Test 05/24/16 01:11 05/24/16 01:45 05/24/16 02:05 05/24/16 03:35 Creatine Kinase MB Ratio White Blood Count 9.27 K/uL Red Blood Count 4.38 M/uL Hemoglobin 13.2 g/dL Hematocrit 37.5 % Mean Corpuscular Volume 85.6 fL Mean Corpuscular Hemoglobin 30.1 pg Mean Corpuscular Hemoglobin Concent 35.2 g/dl Platelet Count 200 K/uL Mean Platelet Volume 11.3 fL Neutrophils (%) (Auto) 68.7 % Lymphocytes (%) (Auto) 24.6 % Monocytes (%) (Auto) 5.3 % Eosinophils (%) (Auto) 0.9 % Basophils (%) (Auto) 0.2 % Neutrophils # (Auto) 6.37 K/uL Lymphocytes # (Auto) 2.28 K/uL Monocytes # (Auto) 0.49 K/uL Eosinophils # (Auto) 0.08 K/uL Basophils # (Auto) 0.02 K/uL RDW Standard Deviation 39.3 fL RDW Coefficient of Variation 12.6 % Immature Granulocyte % (Auto) 0.3 % Immature Granulocyte # (Auto) 0.03 K/uL Prothrombin Time 10.9 SECONDS Prothromb Time International Ratio 1.0 Activated Partial Thromboplast Time 26.8 SECONDS Partial Thromboplastin Ratio 1.0 Sodium Level 143 mmol/L Potassium Level 3.3 mmol/L Chloride Level 107 mmol/L Carbon Dioxide Level 26 mmol/L Anion Gap 10.0 mmol/L Blood Urea Nitrogen 13 mg/dl Creatinine 0.73 mg/dl Est Creatinine Clear Calc Drug Dose 106.2 ml/min Estimated GFR () 131.7 Estimated GFR (Non- 113.7 BUN/Creatinine Ratio 18.0 Random Glucose 105 mg/dl Calcium Level 8.2 mg/dl Magnesium Level 1.7 mg/dl Total Bilirubin 0.2 mg/dl Aspartate Amino Transf (AST/SGOT) 14 U/L Alanine Aminotransferase (ALT/SGPT) 34 U/L Alkaline Phosphatase 75 U/L Total Creatine Kinase 60 U/L Creatine Kinase MB < 0.5 ng/ml Troponin I < 0.015 ng/ml Total Protein 6.8 gm/dl Albumin 3.8 gm/dl Globulin 3.0 gm/dl Albumin/Globulin Ratio 1.3 Thyroid Stimulating Hormone (TSH) 3.800 uIu/ml Ethyl Alcohol mg/dL < 3.0 mg/dl Lyme Disease IgG Antibody NEG Lyme Disease IgM Antibody NEG Urine Color YELLOW Urine Appearance CLEAR Urine pH 7.5 Urine Specific [place] 1.012 Urine Protein NEG Urine Glucose (UA) NEG Urine Ketones NEG Urine Occult Blood NEG Urine Nitrite NEG Urine Bilirubin NEG Urine Urobilinogen NEG Urine Leukocyte Esterase NEG Urine Test NEG Urine Opiates Screen NEG Urine Methadone, Qualitative NEG Urine Barbiturates NEG Urine Phencyclidine (PCP) Level NEG Ur Amphetamine/Methamphetamine NEG MDMA (Ecstasy) Screen NEG Urine Benzodiazepines Screen NEG Urine Cocaine Metabolite NEG Urine Marijuana (THC) NEG CSF Color COLORLESS CSF Appearance CLEAR CSF WBC 48 /uL CSF RBC 0 /uL CSF Polynuclear WBCs 0.0 % CSF Mononuclear WBCs 100.0 % CSF Xanthrochromic NO XANTHOCHROMIA CSF Cell Count Tube # 4 CSF Chemistry Tube # 2 CSF Glucose 52 mg/dl CSF Total Protein 91.8 mg/dl Test 05/24/16 09:10 Diagnostic Results 05/24/16 01:45 Red Blood Count 4.38, Mean Corpuscular Volume 85.6, Mean Corpuscular Hemoglobin 30.1, Mean Corpuscular Hemoglobin Concent 35.2, Mean Platelet Volume 11.3, Neutrophils (%) (Auto) 68.7, Lymphocytes (%) (Auto) 24.6, Monocytes (%) (Auto) 5.3, Eosinophils (%) (Auto) 0.9, Basophils (%) (Auto) 0.2, Neutrophils # (Auto) 6.37, Lymphocytes # (Auto) 2.28, Monocytes # (Auto) 0.49, Eosinophils # (Auto) 0.08, Basophils # (Auto) 0.02 05/24/16 01:45 Test 05/24/16 01:45 05/24/16 02:05 05/24/16 03:35 05/24/16 09:10 White Blood Count 9.27 K/uL (4.8-10.8) Red Blood Count 4.38 M/uL (4.2-5.4) Hemoglobin 13.2 g/dL (12.0-16.0) Hematocrit 37.5 % (37-47) Mean Corpuscular Volume 85.6 fL (80-100) Mean Corpuscular Hemoglobin 30.1 pg (25-34) Mean Corpuscular Hemoglobin Concent 35.2 g/dl (32-36) Platelet Count 200 K/uL (130-400) Mean Platelet Volume 11.3 fL (7.4-10.4) Neutrophils (%) (Auto) 68.7 % Lymphocytes (%) (Auto) 24.6 % Monocytes (%) (Auto) 5.3 % Eosinophils (%) (Auto) 0.9 % Basophils (%) (Auto) 0.2 % Neutrophils # (Auto) 6.37 K/uL (1.4-6.5) Lymphocytes # (Auto) 2.28 K/uL (1.2-3.4) Monocytes # (Auto) 0.49 K/uL (0.11-0.59) Eosinophils # (Auto) 0.08 K/uL (0-0.5) Basophils # (Auto) 0.02 K/uL (0-0.2) RDW Standard Deviation 39.3 fL (36.4-46.3) RDW Coefficient of Variation 12.6 % (11.5-14.5) Immature Granulocyte % (Auto) 0.3 % Immature Granulocyte # (Auto) 0.03 K/uL (0.00-0.02) Prothrombin Time 10.9 SECONDS (9.0-12.0) Prothromb Time International Ratio 1.0 (0.9-1.1) Activated Partial Thromboplast Time 26.8 SECONDS (21.0-31.0) Partial Thromboplastin Ratio 1.0 Anion Gap 10.0 mmol/L (3-11) Est Creatinine Clear Calc Drug Dose 106.2 ml/min Estimated GFR () 131.7 Estimated GFR (Non- 113.7 BUN/Creatinine Ratio 18.0 (10-20) Calcium Level 8.2 mg/dl (8.5-10.1) Magnesium Level 1.7 mg/dl (1.8-2.4) Total Bilirubin 0.2 mg/dl (0.2-1) Aspartate Amino Transf (AST/SGOT) 14 U/L (15-37) Alanine Aminotransferase (ALT/SGPT) 34 U/L (12-78) Alkaline Phosphatase 75 U/L (45-117) Total Creatine Kinase 60 U/L (26-192) Creatine Kinase MB < 0.5 ng/ml (0.5-3.6) Creatine Kinase MB Ratio (0-3.0) Troponin I < 0.015 ng/ml (0-0.045) Total Protein 6.8 gm/dl (6.4-8.2) Albumin 3.8 gm/dl (3.4-5.0) Globulin 3.0 gm/dl (2.5-4.0) Albumin/Globulin Ratio 1.3 (0.9-2) Thyroid Stimulating Hormone (TSH) 3.800 uIu/ml (0.300-4.500) Ethyl Alcohol mg/dL < 3.0 mg/dl (0-3) Lyme Disease IgG Antibody NEG (NEG) Lyme Disease IgM Antibody NEG (NEG) Urine Color YELLOW Urine Appearance CLEAR (CLEAR) Urine pH 7.5 (4.5-7.5) Urine Specific [place] 1.012 (1.000-1.030) Urine Protein NEG (NEG) Urine Glucose (UA) NEG (NEG) Urine Ketones NEG (NEG) Urine Occult Blood NEG (NEG) Urine Nitrite NEG (NEG) Urine Bilirubin NEG (NEG) Urine Urobilinogen NEG (NEG) Urine Leukocyte Esterase NEG (NEG) Urine Test NEG (NEG) Urine Opiates Screen NEG (NEG) Urine Methadone, Qualitative NEG (NEG) Urine Barbiturates NEG (NEG) Urine Phencyclidine (PCP) Level NEG (NEG) Ur Amphetamine/Methamphetamine NEG (NEG) MDMA (Ecstasy) Screen NEG (NEG) Urine Benzodiazepines Screen NEG (NEG) Urine Cocaine Metabolite NEG (NEG) Urine Marijuana (THC) NEG (NEG) CSF Color COLORLESS CSF Appearance CLEAR CSF WBC 48 /uL (0-5) CSF RBC 0 /uL (0) CSF Polynuclear WBCs 0.0 % CSF Mononuclear WBCs 100.0 % CSF Xanthrochromic NO XANTHOCHROMIA CSF Cell Count Tube # 4 CSF Chemistry Tube # 2 CSF Glucose 52 mg/dl (40-70) CSF Total Protein 91.8 mg/dl (15.0-45.0) HEAD CT NONCONTRAST CT DOSE: 537.48 mGy.cm HISTORY: Altered mental status TECHNIQUE: Multiaxial CT images of the head were performed without the use of intravenous contrast. Automated exposure control was utilized for this study. Comparison: None. Findings: Air-fluid level within the left maxillary sinus. The mastoid air cells are clear. The calvarium and skull base are intact. The ventricles and sulci are within normal limits. There is no mass, hematoma, midline shift, or acute infarct. Impression: No acute intracranial abnormality. Acute left maxillary sinusitis. MRI OF THE BRAIN WITHOUT AND WITH IV CONTRAST CLINICAL HISTORY: meningitis headache COMPARISON STUDY: No previous studies for comparison. TECHNIQUE: Utilizing a 1.5 Andria magnet and dedicated coil, multiplanar, multiecho imaging of the brain was performed pre and postcontrast administration. IV administration of 8.5 mL of Gadavist contrast was uneventful. FINDINGS: Diffusion-weighted images are unremarkable. No evidence for an acute ischemic event. Signal characteristics are unremarkable. No significant postcontrast enhancement. IMPRESSION: Normal study. CHEST ONE VIEW PORTABLE HISTORY: meningitis COMPARISON: None. FINDINGS: The lungs are clear. Cardiac silhouette is normal in size. No pleural effusions. No pneumothorax. IMPRESSION: No acute process. 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 She never had any fever or rashes. Lumbar puncture in the ER revealed an elevated white count with normal glucose. Neurology: Had a period of confusion with right-sided weakness which is now resolved - Alert awake and oriented currently - Workup for AMS: - Head CT: No acute process, left maxillary sinusitis - Brain MRI :no acute process - Electrolytes: Grossly within normal limits, slight decrease in K and magnesium - Urine toxicology including blood alcohol negative - Neurology consultation: Appreciate input ID: Meningitis likely viral: - LP done in the ER revealed CSF with elevated white count at 48, normal glucose of 52, total protein of 91.8. - CSF Gram stain: Moderate WBCs with no organisms - CSF culture, Lyme , HSV pending at this moment - Blood cultures pending - Lyme serology negative - Droplet and contact precautions - ID consult - Continue vancomycin, ceftriaxone 2 g every 12 hours and acyclovir. Levaquin discontinued - Decadron discontinued ENT: - Acute left-sided maxillary sinusitis visualized on CT, likely viral - Patient asymptomatic - ENT consult ( possibility of early bacterial meningitis secondary to sinusitis though CSF appears to be viral etiology and sinusitis is restricted to left maxillary sinus ) Renal: - IV fluids: Continue NSS + 20 K especially considering acyclovir - Electrolytes: - K of 3.3: Replaced - Mg 1.7, 2 g mag sulfate added CVS: - History of hypertension: Diagnosed at age 12 - Currently ranging in the 130s systolic and 80s diastolic - Noncompliant with medication - Unknown as to how much workup she has had - She will need further eval as an outpatient GI/FEN: - Low-sodium diet Full code Disposition: In the ICU, continue contact and droplet precautions for 24 hours Resident Physician Supervision Note: I was present with Dr. India Fernandez during the history and exam. I discussed the case with the resident and agree with the findings and plan as documented in the note. Any exceptions or clarifications are listed here: Patient improved rapidly clinically. Doubt bacterial meningitis. F/u HSV titers and CSF cultures. I am concerned about the untreated HTN, she has been neglecting this chronic issue, which will likely lead to early morbidities and/or mortality. I counseled her extensively about following up with a PMD and investigate it and keep it under control. Apparently she has been hypertensive since the age of 12. Documented By: Thang Ramirez MD
--- NOTE | 2016-05-24 11:10 | Progress Note ---
Progress Note Date of Service May 24, 2016. Progress Note ID Consult Dictated #[id number] A/P: 1.Meningitis, suspect viral -Add HSV pcr to fluid -Continue abx/acyclovir for now -Will follow, thank you
--- NOTE | 2016-05-24 11:17 | Pharmacy Progress Note ---
Pharmacy Antibiotic Consult Date of Service: May 24, 2016. Pharmacy Dosing Scope Pharmacy is consulted to initiate vancomycin and acyclovir IV dosing therapy, order appropriate labs and adjust drug dose/frequency. 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 Objective Height (Feet): 4 Height (Inches): 11.00 Weight (Kilograms): 79.100 Lab Results (24hrs): Laboratory Tests Test 05/24/16 01:45 BUN/Creatinine Ratio 18.0 Blood Urea Nitrogen 13 mg/dl Creatinine 0.73 mg/dl White Blood Count 9.27 K/uL Red Blood Count 4.38 M/uL Hemoglobin 13.2 g/dL Hematocrit 37.5 % Mean Corpuscular Volume 85.6 fL Mean Corpuscular Hemoglobin 30.1 pg Mean Corpuscular Hemoglobin Concent 35.2 g/dl Platelet Count 200 K/uL Mean Platelet Volume 11.3 fL Neutrophils (%) (Auto) 68.7 % Lymphocytes (%) (Auto) 24.6 % Monocytes (%) (Auto) 5.3 % Eosinophils (%) (Auto) 0.9 % Basophils (%) (Auto) 0.2 % Neutrophils # (Auto) 6.37 K/uL Lymphocytes # (Auto) 2.28 K/uL Monocytes # (Auto) 0.49 K/uL Eosinophils # (Auto) 0.08 K/uL Basophils # (Auto) 0.02 K/uL Micro Results: Item Value Date Time Lyme Disease IgG Antibody NEG 05/24/16144 Lyme Disease IgM Antibody NEG 05/24/16144 Item Value Date Time CSF Appearance CLEAR 05/24/16334 CSF Color COLORLESS 05/24/16334 CSF Xanthrochromic NO XANTHOCHROMIA 05/24/16334 CSF WBC 48 /uL *H 05/24/16 033 CSF RBC 0 /uL 05/24/16334 CSF Cell Count Tube # 4 05/24/16334 CSF Mononuclear WBCs 100.0 % 05/24/16334 CSF Polynuclear WBCs 0.0 % 05/24/16334 CSF Chemistry Tube # 2 05/24/16334 CSF Glucose 52 mg/dl 05/24/16 033 CSF Total Protein 91.8 mg/dl H 05/24/16334 Item Value Date Time Blood Culture Received 05/24/16 0900 Blood Pending Blood Culture Received 05/24/16844 Blood Pending MRSA DNA Surveillance Screen Received 05/24/16824 Nasal Pending Gram Stain - Final Resulted 05/24/16334 Cerebral Spinal Fluid SPEC #: [id number] EH: 05/24/16 STATUS: RES REQ #: [id number] RECD: 05/24/[address] [facility] [address]: Pato Rose PA- C SOURCE: CSF ENTR: 05/24/[address]: Renzo Stoll M.D. SPDESC: No Doctor, Assigned ORDERED: CSF CULT/SMR COMMENTS: Comments to Physical Fitness Teacher TUBE#3 TUBE # TO USE FOR SPINAL FLUID CELL CULTURE= 3 Procedure Result Verified Site GRAM STAIN Final 05/24/16 RESULT MODERATE WBCs SEEN NO ORGANISMS SEEN CSF CULTURE PENDING Recent Pertinent Medications Item Value Date Time Acyclovir Sodium 265.8 ml @ 265 mls/hr 05/24/16 0445 790 mg/Dextrose NOW ONCE/IV ONE TIME DOSE IN ED 05/24/16 0545 Ceftriaxone 50 ml @ 100 mls/hr 05/24/16 0527 Sodium 1 gm/ ONE STAT/IV 05/24/16 0546 Dextrose ONE TIME DOSE IN ED Ceftriaxone Sodium 1 gm 05/24/16 0442 (Rocephin Inj) NOW STAT/IV ONE TIME DOSE IN ED 05/24/16 0505 Vancomycin HCl 1 gm 05/24/16 0535 (Vancomycin 1gm/ .STK-MED ONCE/.ROUTE 05/24/16 0546 270ml Nss) ONE TIME DOSE IN ED Assessment & Plan Assessment: * 25 y/o admitted to r/o meningitis * headache prior to admission * h/o sick contacts - works at daycare * WBC/ANC WNL on admission, afebrile * QTc prolonged (652msec) on admission * cancelled Levaquin order at multidisciplinary rounds Plan: * Begin empiric treatment for meningitis with vancomycin, acyclovir, and ceftriaxone IV Vancomycin: * Loading dose: 1000mg IV X 1 dose (given in ED) * Maintenance dose: 1500mg IV every 12 hours * may accumulate secondary to BMI, however aggressive dosing empirically for 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 Thank you
[2016-05-24] MEDS: VANCOMYCIN INJ 1,500 MG in SODIUM CHLORIDE 0.9% 500ML 500 ML IV SCH ×2 (11:24→20:33)
[2016-05-24] MEDS: MAGNESIUM SULFATE 1GM / D5W 1 GM in PREMIXED IN D5W 100 ML IV SCH ×2 (11:25→12:34)
[2016-05-24] MEDS: NSS + 20MEQ KCL 1000ML 1,000 ML IV SCH ×2 (11:26→19:48)
--- NOTE | 2016-05-24 11:40 | INFECT. DISEASE CONSULTATION ---
DATE OF CONSULTATION: 05/24/2016 REQUESTING PHYSICIAN: Dr. Rob. HISTORY OF PRESENT ILLNESS: This is a 25-year-old female who presented to the Emergency Room with acute onset of change in mental status. She states that she does have memory of coming to the hospital but she does feel that she had some confusion on arrival to the ER. She states that she woke up at midnight and she had right-sided weakness and felt like she had a tingling sensation in her lower extremity. She was also found by family members to have altered mental status, and therefore, was brought to the hospital. In the Emergency Room, she did undergo lumbar puncture. She had 48 white blood cells and an elevated protein of 91. An MRI of the brain was normal. Lyme studies are pending. UA was negative. A urine drug screen was negative. She has been afebrile since admission. Her white blood cell count was 9.2. She was started on Rocephin, acyclovir, vancomycin and dexamethasone. She is also being followed by neurology. She states that her 4-year-old daughter was sick with influenza last week, but otherwise she has had no sick contacts. She has had no travel anywhere. She states that she began having headaches on Tuesday of last week, which worsened throughout the week. She states she occasionally gets migraines but she does not typically have significant history of headache. She was not having any visual or auditory hallucinations; however, she did feel that her vision was occasionally blurry in her peripheral visual ferraro throughout the week. She currently is up ambulating in the room and states overall she is feeling significantly better. She denies any fevers or chills at home. She denies any cough, shortness of breath, chest pain, nausea, vomiting, diarrhea. She denies any insect bites or rashes recently. All remaining review of systems are unremarkable. PAST MEDICAL HISTORY: Significant for -induced hypertension. SURGICAL HISTORY: Unremarkable. FAMILY HISTORY: Unremarkable. SOCIAL HISTORY: Negative for tobacco use, alcohol use or drug use. She does live with her family. She does work in a daycare facility. ALLERGIES: She has no known drug allergies. CURRENT MEDICATIONS: Include Rocephin, acyclovir, magnesium, vancomycin, insulin, Ativan, Ashley, acetaminophen, Zofran, Benadryl, morphine. PHYSICAL EXAMINATION: VITAL SIGNS: She is afebrile, pulse 113, respiratory rate is in the 20s, blood pressure is 130/71, oxygen saturation is 96-98% on room air. GENERAL: She is awake, alert and oriented x3. She is in no acute distress. There is no nuchal rigidity. HEENT: Extraocular muscles are intact. Mucous membranes are moist. SKIN: Without rash. HEART: Regular and tachycardic. LUNGS: Clear bilaterally. ABDOMEN: Soft, nontender, nondistended. EXTREMITIES: There is no lower extremity edema bilaterally. LABORATORY STUDIES: CBC reveals a white blood cell count of 9.2, hemoglobin is 13.2, platelets are 200. Chemistry panel reveals sodium of 143, potassium 3.3, chloride 107, bicarbonate 26, BUN 13, creatinine 0.7, glucose is 105. LFTs are within normal limits. Urinalysis was negative. Urine test was negative. Drug screen was negative. Again, CSF fluid was clear, colorless, with 48 white cells, 100% mononuclear, 0 polys, and protein was elevated at 91.8, glucose was normal at 52. Lyme disease screen is negative. HSV PCR is pending. CSF culture is negative to date. There were moderate white blood cells and no organisms. Blood cultures are pending. MRI of the head was negative. A chest x-ray done this morning showed no acute disease. ASSESSMENT AND PLAN: Meningitis, suspect viral in etiology. She will remain on antibiotics pending blood and CSF cultures; however, her CSF profile would fit more of a viral illness. She also had recent sick contact and also works at a daycare, so there could be some viral exposure there as well. She is improving and has had a negative MRI study. I will await the results of her Lyme testing cultures as well as HSV PCR. Thank you for this consultation.
--- NOTE | 2016-05-24 11:44 | Medical Student: [facility] ---
Med Student History & Physical Date & Time of Service: May 24, 2016 at 08:43 Chief Complaint: Confusion, headache, and vomiting Primary Care Physician: No Doctor, Assigned History of Present Illness Source: patient, hospital records, EMS This is a 25 year old female with no significant PMH who presented to the ED on 05/24 with altered mental status and vomiting.She says she woke up this morning and was unable to roll over because the right side of her body was "numb." Her 4 year old daughter was sleeping with her at the time and went to get her father. The father confirmed that mom was acting "weird" and put her in the car to go to the ED. On route the patient vomited several times so he pulled over and called EMS. In the ED, GSC was 12. Patient was afebrile, confused and had difficulty answering questions. CT showed no acute intracranial abnormalities and chest xray was normal. MRI of the head showed a left maxillary sinusitis. Lumbar puncture was performed. CSF was clear, without xanthochroma with increased WBC (48) predominately mononuclear cells, no RBCs, increased protein ( 91.8), and normal glucose (52). Tox screen, Lyme disease titers, and UA were WNL ). Currently the patient is oriented and able to recount her history. She says she has been experiencing a "really bad" headache for the past week to week and a half for which she has been taking "a NSAID." She occasionally has "migraine" headache that localize to the left side of her head but this head was more of a "band-like squeezing pain" around her entire head. The headache was accompanied by dizziness, nausea, and vomiting. She denies recent illness or travel. Her daughter had influenza a few weeks ago and the patient works in a daycare center. Patient also denies chest pain, palpitations, shortness of breath, fever , chills, syncope, and falls. At this time she is feeling "much better" then when she presented. The "top" of her head hurts but the "band-like headache" is not present. Right sided "weakness" has resolved. She also complains of neck "stiffness" and the feeling that her head "weighs alot." Patient is not feeling nauseous. Past Medical/Surgical History Medical Problems: (1) induced hypertension Status: Resolved Social History Smoking Status: Unknown if Ever Smoked Smokeless Tobacco Use: No Alcohol Use: none Drug Use: none Marital Status: Housing status: lives with family Occupational Status: employed (daycare center) Immunizations History of Influenza Vaccine: Yes Influenza Vaccine Date: Dec 24, 2010 History of Tetanus Vaccine?: Unknown Allergies Coded Allergies: No Known Allergies (Unverified , 05/24/16) Medications Piprbof-Teqiaxgpgnhmf-Ojkemoel (Excedrin Migraine), 1 DOSE PO UD PRN for Migraine Levonorgestrel (Iud) (Mirena), 1 DOSE INT UTER CONTINOUS Review of Systems Constitutional: + problem reported (top of head hurts), No chills, No fatigue, No fever, No sweats, No weight loss Eyes: No worsening of vision ENT: No hearing loss, No tinnitus Respiratory: No cough, No dyspnea at rest, No dyspnea on exertion, No hemoptysis, No shortness of breath, No sputum, No wheezing Cardiovascular: No PND, No chest pain, No orthopnea Abdomen: No constipation, No diarrhea, No nausea, No pain, No vomiting Musculoskeletal: + problem reported (neck stiffness) Genitourinary - Female: No dysuria, No hematuria, No urinary frequency, No urinary incontinence, No urinary retention, No urinary urgency Neurologic: No numbness/tingling, No paralysis, No weakness Integumentary: No rash Physical Exam Vital Signs (24 Hours) Date Time Temp Pulse Resp B/P Pulse Ox O2 Delivery O2 Flow Rate FiO2 05/24/16 07:25 113 24 130/71 96 05/24/16 06:00 104 20 114/71 96 Room Air 05/24/16 05:26 96 05/24/16 05:00 102 20 135/85 98 Room Air 05/24/16 04:01 94 20 118/74 97 Room Air 05/24/16 02:56 102 20 137/87 98 Room Air 05/24/16 01:44 108 20 144/98 98 Room Air 05/24/16 01:33 98 Room Air 05/24/16 01:24 117 05/24/16 01:14 36.9 116 20 139/91 98 Room Air General Appearance: WD/WN, no apparent distress Head: normocephalic Eyes: normal inspection, PERRL, EOMI ENT: hearing grossly normal Neck: no JVD, no carotid bruits Respiratory/Chest: chest non-tender, lungs clear, normal breath sounds, no respiratory distress, no accessory muscle use Cardiovascular: regular rate, rhythm, no gallop, no murmur Abdomen/GI: normal bowel sounds, non tender, soft, no organomegaly Extremities/Musculoskelatal: no calf tenderness, no pedal edema Neurologic/Psych: alert, normal mood/affect, oriented x 3 Skin: normal color, warm/dry, no rash Diagnostics Laboratory Results Results Past 24 Hours Test 05/24/16 01:11 05/24/16 01:45 05/24/16 02:05 05/24/16 03:35 Range/Units Creatine Kinase MB Ratio 0-3.0 White Blood Count 9.27 4.8-10.8 K/uL Red Blood Count 4.38 4.2-5.4 M/uL Hemoglobin 13.2 12.0-16.0 g/dL Hematocrit 37.5 37-47 % Mean Corpuscular Volume 85.6 80-100 fL Mean Corpuscular Hemoglobin 30.1 25-34 pg Mean Corpuscular Hemoglobin Concent 35.2 32-36 g/dl Platelet Count 200 130-400 K/uL Mean Platelet Volume 11.3 7.4-10.4 fL Neutrophils (%) (Auto) 68.7 % Lymphocytes (%) (Auto) 24.6 % Monocytes (%) (Auto) 5.3 % Eosinophils (%) (Auto) 0.9 % Basophils (%) (Auto) 0.2 % Neutrophils # (Auto) 6.37 1.4-6.5 K/uL Lymphocytes # (Auto) 2.28 1.2-3.4 K/uL Monocytes # (Auto) 0.49 0.11-0.59 K/uL Eosinophils # (Auto) 0.08 0-0.5 K/uL Basophils # (Auto) 0.02 0-0.2 K/uL RDW Standard Deviation 39.3 36.4-46.3 fL RDW Coefficient of Variation 12.6 11.5-14.5 % Immature Granulocyte % (Auto) 0.3 % Immature Granulocyte # (Auto) 0.03 0.00-0.02 K/uL Prothrombin Time 10.9 9.0-12.0 SECONDS Prothromb Time International Ratio 1.0 0.9-1.1 Activated Partial Thromboplast Time 26.8 21.0-31.0 SECONDS Partial Thromboplastin Ratio 1.0 Sodium Level 143 136-145 mmol/L Potassium Level 3.3 3.5-5.1 mmol/L Chloride Level 107 98-107 mmol/L Carbon Dioxide Level 26 21-32 mmol/L Anion Gap 10.0 3-11 mmol/L Blood Urea Nitrogen 13 7-18 mg/dl Creatinine 0.73 0.60-1.20 mg/dl Est Creatinine Clear Calc Drug Dose 106.2 ml/min Estimated GFR () 131.7 Estimated GFR (Non- 113.7 BUN/Creatinine Ratio 18.0 10-20 Random Glucose 105 70-99 mg/dl Calcium Level 8.2 8.5-10.1 mg/dl Magnesium Level 1.7 1.8-2.4 mg/dl Total Bilirubin 0.2 0.2-1 mg/dl Aspartate Amino Transf (AST/SGOT) 14 15-37 U/L Alanine Aminotransferase (ALT/SGPT) 34 12-78 U/L Alkaline Phosphatase 75 45-117 U/L Total Creatine Kinase 60 26-192 U/L Creatine Kinase MB < 0.5 0.5-3.6 ng/ml Troponin I < 0.015 0-0.045 ng/ml Total Protein 6.8 6.4-8.2 gm/dl Albumin 3.8 3.4-5.0 gm/dl Globulin 3.0 2.5-4.0 gm/dl Albumin/Globulin Ratio 1.3 0.9-2 Thyroid Stimulating Hormone (TSH) 3.800 0.300-4.500 uIu/ml Ethyl Alcohol mg/dL < 3.0 0-3 mg/dl Lyme Disease IgG Antibody NEG NEG Lyme Disease IgM Antibody NEG NEG Urine Color YELLOW Urine Appearance CLEAR CLEAR Urine pH 7.5 4.5-7.5 Urine Specific [place] 1.012 1.000-1.030 Urine Protein NEG NEG Urine Glucose (UA) NEG NEG Urine Ketones NEG NEG Urine Occult Blood NEG NEG Urine Nitrite NEG NEG Urine Bilirubin NEG NEG Urine Urobilinogen NEG NEG Urine Leukocyte Esterase NEG NEG Urine Test NEG NEG Urine Opiates Screen NEG NEG Urine Methadone, Qualitative NEG NEG Urine Barbiturates NEG NEG Urine Phencyclidine (PCP) Level NEG NEG Ur Amphetamine/Methamphetamine NEG NEG MDMA (Ecstasy) Screen NEG NEG Urine Benzodiazepines Screen NEG NEG Urine Cocaine Metabolite NEG NEG Urine Marijuana (THC) NEG NEG CSF Color COLORLESS CSF Appearance CLEAR CSF WBC 48 0-5 /uL CSF RBC 0 0 /uL CSF Polynuclear WBCs 0.0 % CSF Mononuclear WBCs 100.0 % CSF Xanthrochromic NO XANTHOCHROMIA CSF Cell Count Tube # 4 CSF Chemistry Tube # 2 CSF Glucose 52 40-70 mg/dl CSF Total Protein 91.8 15.0-45.0 mg/dl Microbiology Results 05/24/16 Blood Culture, Kimberly Batch Pending 05/24/16 Blood Culture, Kimberly Batch Pending 05/24/16 Gram Stain - Final, Resulted 05/24/16 CSF Culture, Resulted Pending 05/24/16 MRSA DNA Surveillance Screen, Kimberly Batch Pending Impression Assessment and Plan ASSESSMENT Patient is a 25 year old female with no significant PMH who presented to the ED for signs and symptoms of meningitis including altered mental status, headache, nausea, and vomiting. This is mostly due to a viral etiology. CSF showed increased WBC, predominantly lymphocytes, with increased protein and normal glucose. Normal MRI study suggests no co-morbid encephalitis. Also consider bacterial meningitis secondary to her left maxillary sinusitis, Lyme disease, Guillian Lazbuddie syndrome, migraine headache, ischemic cerebral episode, intoxication, and UTI. Tox screen, Lyme disease titers, and UA were all WNL. CSF profile does not suggest bacterial infection. PLAN 1) Meningitis -Stop Vancomycin and Decadron. -Continue Ceftriaxone 2g IV q12 hours, Levofloxacin 750mg IV q24 hours. -Zofran 4mg IV q6 hours prn. -Morphine sulfate q4 hours prn. -Follow CBC with diff, BMP, LFTs, magnesium level. -Patient seen by neurology. Consult infectious disease. 2) Hyperglycemia -BSG was 105 on admission. -Accu-Checks before meals and at bedtime. NovoLog coverage prn. 3) Hypokalemia -Potassium was 3.3 on admission. Possibly secondary to respiratory alkalosis. -Continue normal saline with KCl 20mEq. 4) DVT prophylaxis. -Compression stockings. Level of Care Critical Care Advanced Directives Existing Advance Directive: No Existing Living Will: No Existing Power of Ripening Room Attendant: No
--- NOTE | 2016-05-24 13:27 | ENT CONSULTATION ---
DATE OF ADMISSION: 05/24/2016 DIAGNOSES: Meningitis and sinusitis. HISTORY OF PRESENT ILLNESS: A 25-year-old female admitted via the Emergency Room last evening because of altered mental status. She had migraines and headaches for a week. She became disoriented and was brought by family to the ER where a lumbar puncture showed increased white blood cell count but no elevation of glucose consistent with viral meningitis, therefore, she was admitted to ICU. PAST MEDICAL HISTORY: Medical problems hypertension during . PREVIOUS SURGERIES: None. HOME MEDICATIONS: Levonorgestrel. ALLERGIES: No known drug allergies. REVIEW OF SYSTEMS: Positive for intermittent episodes of sinusitis and for migraine headaches. PHYSICAL EXAMINATION: GENERAL: WN, WD female in no acute distress. HEAD: Normocephalic. EYES: Normal. EARS: Tympanic membranes intact. NOSE: Swollen nasal turbinates, no sign of polyps. THROAT: Oropharynx shows 2-3+ tonsillar hypertrophy. IMAGING: CT scan was reviewed, this indeed show air-fluid level in the left maxillary sinus; however, the ethmoids and frontal and sphenoid sinuses appear to be clear on the CT scan of the head, although this is not specifically a fine Section CT scan of the sinuses. IMPRESSION: Viral meningitis and acute left maxillary sinusitis. Both of these may be viral. The patient states that she is much more comfortable and appears to be improving and she is alert and oriented today, in that she is improving. Surgical intervention on the sinuses is not contemplated. I would agree with the continuing treatment for viral meningitis. I will follow her and would only intervene if the sinus disease progresses. JENNA
[2016-05-24] MEDS ORDERED: DEXTROSE 5% IV SCH (14:00)
[2016-05-24] MEDS ORDERED: ACYCLOVIR SOD IV SCH (14:00)
[2016-05-24 14:34] LABS: COMPLETE YES; IG% 0.3 %; LYMPH % 6.9 %; LYMPH ABS # 0.76 K/uL (1.2-3.4); MEAN CELL VOLUME 85.3 fL (80-100); MEAN CORPUSCULAR HEMOGLOBIN 29.8 pg (25-34); MEAN CORPUSCULAR HGB CONC 34.9 g/dl (32-36); MEAN PLATELET VOLUME 11.3 fL (7.4-10.4); MONO % 0.1 %; NEUT % 92.7 %; PLATELET COUNT 240 K/uL (130-400); RED BLOOD COUNT 4.57 M/uL (4.2-5.4); WHITE BLOOD COUNT 11.09 K/uL (4.8-10.8)
[2016-05-24 15:17] LABS: ALB/GLOB RATIO 1.2 (0.9-2); BUN/CREATININE RATIO 7.9 (10-20); CALCIUM 8.7 mg/dl (8.5-10.1); CREATININE 0.82 mg/dl (0.60-1.20); MAGNESIUM 2.7 mg/dl (1.8-2.4); PHOSPHORUS 1.8 mg/dl (2.5-4.9); POTASSIUM 4.1 mmol/L (3.5-5.1)
[2016-05-24] MEDS: DEXTROSE 5% IV SCH (16:53)
[2016-05-24] MEDS: ACYCLOVIR SOD IV SCH (16:53)
[2016-05-24] MEDS: CEFTRIAXONE SOD INJ 2,000 MG in DEXTROSE 5% 50ML 50 ML IV SCH (16:53)
[2016-05-24] MEDS ORDERED: SODIUM PHOSPHATE 3 MMOL/1 ML INFUSION IV STA (17:41)
[2016-05-24] MEDS ORDERED: SODIUM PHOSPHATE INJ 15 MMOL in SODIUM CHLORIDE 0.9% 250ML 250 ML IV SCH (18:15)
--- NOTE | 2016-05-24 18:55 | Family Medicine Progress Note ---
Progress Note Date of Service May 24, 2016. Subjective Pt evaluation today including: conversation w/ patient, conversation w/ family , physical exam, chart review, lab review Pain: low grade headache, frontal Patient notes feeling much better since admission Alert and oriented Feels like weakness has improved Neck stiffness improving but still present Constitutional: No fatigue, No fever, No sweats Eyes: No eye pain, No redness, No worsening of vision ENT: No hearing loss, No sore throat, No tinnitus Respiratory: No cough, No shortness of breath, No wheezing Cardiovascular: No chest pain, No palpitations Abdomen: No constipation, No diarrhea, No nausea, No pain, No vomiting Musculoskeletal: No joint pain, No muscle pain Female : No dysuria, No urinary frequency Neurologic: No numbness/tingling, No vertigo, No weakness Psychiatric: No anxiety, No insomnia Heme: No clotting problems, No swollen lymph nodes Endo: No excessive thirst, No excessive urination Skin: No itch, No new/changing skin lesions, No rash Medications Current Inpatient Medications Medications (Trade) Dose Ordered Sig/Joshua Route Start Time Stop Time Status Last Admin Dose Admin Vancomycin HCl 1500 mg/Sodium Chloride 530 ml @ 200 mls/hr Q12H IV 05/24/16 10:00 06/03/16 09:59 05/24/16 11:24 200 MLS/HR Ceftriaxone Sodium 2000 mg/ Dextrose 70 ml @ 100 mls/hr Q12H IV 05/24/16 16:00 06/03/16 15:59 05/24/16 16:53 100 MLS/HR Acetaminophen (Ofirmev Iv) 100 ml @ 400 mls/hr Q8H PRN IV 05/24/16 05:30 06/23/16 05:29 Ondansetron HCl (Zofran Inj) 4 mg Q6H PRN IV 05/24/16 05:30 06/23/16 05:29 Insulin Aspart (novoLOG ASPART) SLIDING SCALE If C... ACHS SC 05/24/16 08:45 06/23/16 08:44 05/24/16 16:55 3 UNITS Glucose (Glucose 40% Gel) UD PRN PO 05/24/16 05:30 06/23/16 05:29 Glucose (Glucose Chew Tab) 1 tabs UD PRN PO 05/24/16 05:30 06/23/16 05:29 Dextrose (Dextrose 50% 50ML Syringe) 50 ml UD PRN IV 05/24/16 05:30 06/23/16 05:29 Glucagon (Glucagon Inj) 1 mg UD PRN SQ 05/24/16 05:30 06/23/16 05:29 Diphenhydramine HCl 25 mg 25 mg Q4H PRN IV 05/24/16 05:30 06/23/16 05:29 Potassium Chloride/Sodium Chloride (Nss + 20meq KCl 1000ml) 1,000 ml @ 100 mls/hr Q10H IV 05/24/16 08:45 06/23/16 08:44 05/24/16 11:26 100 MLS/HR Morphine Sulfate (MoRPHine SULFATE INJ) 2 mg Q2H PRN IV 05/24/16 05:30 06/07/16 05:29 05/24/16 11:41 2 MG Morphine Sulfate (MoRPHine SULFATE INJ) 4 mg Q2H PRN IV 05/24/16 05:30 06/07/16 05:29 05/24/16 16:53 4 MG Lorazepam (Ativan Inj) 0.5 mg Q4H PRN IV 05/24/16 05:45 06/23/16 05:44 Levonorgestrel (Mirena (Iud)) 1 ea CONTINOUS IU 05/24/16 05:45 06/23/16 05:44 Vancomycin HCl (Consult) 1 ea UD PRN N/A 05/24/16 06:45 06/23/16 06:44 Acyclovir Sodium 1 ea 1 ea UD PRN N/A 05/24/16 08:30 06/23/16 08:29 Acyclovir Sodium 430 mg/Dextrose 108.6 ml @ 108.6 mls/ hr Q8H IV 05/24/16 16:00 06/03/16 05:59 05/24/16 16:53 108.6 MLS/HR Sodium Phosphate/ Sodium Chloride (Sodium Phosphate Inj/Nss 250ml) 255 ml @ 88 mls/hr TODAY@1815 IV 05/24/16 18:15 05/24/16 21:09 Objective Vital Signs Date Time Temp Pulse Resp B/P Pulse Ox O2 Delivery O2 Flow Rate FiO2 05/24/16 18:00 90 20 119/70 96 Room Air 05/24/16 16:00 94 Room Air 05/24/16 16:00 37.0 95 24 127/86 94 Room Air 05/24/16 14:00 100 22 117/78 96 Room Air 05/24/16 12:00 94 Room Air 05/24/16 12:00 36.7 98 22 114/77 94 Room Air 05/24/16 10:00 92 26 129/82 96 Room Air 05/24/16 09:00 36.7 92 22 125/73 97 Room Air 05/24/16 08:30 36.7 92 22 125/73 96 Room Air 05/24/16 07:25 113 24 130/71 96 05/24/16 06:00 104 20 114/71 96 Room Air 05/24/16 05:26 96 05/24/16 05:00 102 20 135/85 98 Room Air 05/24/16 04:01 94 20 118/74 97 Room Air 05/24/16 02:56 102 20 137/87 98 Room Air 05/24/16 01:44 108 20 144/98 98 Room Air 05/24/16 01:33 98 Room Air 05/24/16 01:24 117 05/24/16 01:14 36.9 116 20 139/91 98 Room Air Physical Exam General Appearance: WD/WN, no apparent distress Eyes: normal inspection, EOMI ENT: normal ENT inspection, hearing grossly normal, pharynx normal Neck: supple, no adenopathy, no JVD, + pertinent finding (mild neck pain with flexion) Respiratory/Chest: chest non-tender, lungs clear, normal breath sounds Cardiovascular: regular rate, rhythm, no gallop, no murmur Abdomen: normal bowel sounds, non tender, soft Extremities: non-tender, no pedal edema Neurologic/Psychiatric: alert, normal mood/affect, oriented x 3 Skin: normal color, warm/dry, no rash Lymphatic: no adenopathy Laboratory Results Last 24 Hours Test 05/24/16 01:11 05/24/16 01:45 05/24/16 02:05 05/24/16 03:35 Creatine Kinase MB Ratio White Blood Count 9.27 K/uL Red Blood Count 4.38 M/uL Hemoglobin 13.2 g/dL Hematocrit 37.5 % Mean Corpuscular Volume 85.6 fL Mean Corpuscular Hemoglobin 30.1 pg Mean Corpuscular Hemoglobin Concent 35.2 g/dl Platelet Count 200 K/uL Mean Platelet Volume 11.3 fL Neutrophils (%) (Auto) 68.7 % Lymphocytes (%) (Auto) 24.6 % Monocytes (%) (Auto) 5.3 % Eosinophils (%) (Auto) 0.9 % Basophils (%) (Auto) 0.2 % Neutrophils # (Auto) 6.37 K/uL Lymphocytes # (Auto) 2.28 K/uL Monocytes # (Auto) 0.49 K/uL Eosinophils # (Auto) 0.08 K/uL Basophils # (Auto) 0.02 K/uL RDW Standard Deviation 39.3 fL RDW Coefficient of Variation 12.6 % Immature Granulocyte % (Auto) 0.3 % Immature Granulocyte # (Auto) 0.03 K/uL Prothrombin Time 10.9 SECONDS Prothromb Time International Ratio 1.0 Activated Partial Thromboplast Time 26.8 SECONDS Partial Thromboplastin Ratio 1.0 Sodium Level 143 mmol/L Potassium Level 3.3 mmol/L Chloride Level 107 mmol/L Carbon Dioxide Level 26 mmol/L Anion Gap 10.0 mmol/L Blood Urea Nitrogen 13 mg/dl Creatinine 0.73 mg/dl Est Creatinine Clear Calc Drug Dose 106.2 ml/min Estimated GFR () 131.7 Estimated GFR (Non- 113.7 BUN/Creatinine Ratio 18.0 Random Glucose 105 mg/dl Calcium Level 8.2 mg/dl Magnesium Level 1.7 mg/dl Total Bilirubin 0.2 mg/dl Aspartate Amino Transf (AST/SGOT) 14 U/L Alanine Aminotransferase (ALT/SGPT) 34 U/L Alkaline Phosphatase 75 U/L Total Creatine Kinase 60 U/L Creatine Kinase MB < 0.5 ng/ml Troponin I < 0.015 ng/ml Total Protein 6.8 gm/dl Albumin 3.8 gm/dl Globulin 3.0 gm/dl Albumin/Globulin Ratio 1.3 Thyroid Stimulating Hormone (TSH) 3.800 uIu/ml Ethyl Alcohol mg/dL < 3.0 mg/dl Lyme Disease IgG Antibody NEG Lyme Disease IgM Antibody NEG Urine Color YELLOW Urine Appearance CLEAR Urine pH 7.5 Urine Specific [place] 1.012 Urine Protein NEG Urine Glucose (UA) NEG Urine Ketones NEG Urine Occult Blood NEG Urine Nitrite NEG Urine Bilirubin NEG Urine Urobilinogen NEG Urine Leukocyte Esterase NEG Urine Test NEG Urine Opiates Screen NEG Urine Methadone, Qualitative NEG Urine Barbiturates NEG Urine Phencyclidine (PCP) Level NEG Ur Amphetamine/Methamphetamine NEG MDMA (Ecstasy) Screen NEG Urine Benzodiazepines Screen NEG Urine Cocaine Metabolite NEG Urine Marijuana (THC) NEG CSF Color COLORLESS CSF Appearance CLEAR CSF WBC 48 /uL CSF RBC 0 /uL CSF Polynuclear WBCs 0.0 % CSF Mononuclear WBCs 100.0 % CSF Xanthrochromic NO XANTHOCHROMIA CSF Cell Count Tube # 4 CSF Chemistry Tube # 2 CSF Glucose 52 mg/dl CSF Total Protein 91.8 mg/dl Test 05/24/16 11:14 05/24/16 14:25 05/24/16 16:48 Bedside Glucose 120 mg/dl 139 mg/dl White Blood Count 11.09 K/uL Red Blood Count 4.57 M/uL Hemoglobin 13.6 g/dL Hematocrit 39.0 % Mean Corpuscular Volume 85.3 fL Mean Corpuscular Hemoglobin 29.8 pg Mean Corpuscular Hemoglobin Concent 34.9 g/dl Platelet Count 240 K/uL Mean Platelet Volume 11.3 fL Neutrophils (%) (Auto) 92.7 % Lymphocytes (%) (Auto) 6.9 % Monocytes (%) (Auto) 0.1 % Eosinophils (%) (Auto) 0.0 % Basophils (%) (Auto) 0.0 % Neutrophils # (Auto) 10.29 K/uL Lymphocytes # (Auto) 0.76 K/uL Monocytes # (Auto) 0.01 K/uL Eosinophils # (Auto) 0.00 K/uL Basophils # (Auto) 0.00 K/uL RDW Standard Deviation 39.8 fL RDW Coefficient of Variation 12.7 % Immature Granulocyte % (Auto) 0.3 % Immature Granulocyte # (Auto) 0.03 K/uL Sodium Level 141 mmol/L Potassium Level 4.1 mmol/L Chloride Level 111 mmol/L Carbon Dioxide Level 25 mmol/L Anion Gap 5.0 mmol/L Blood Urea Nitrogen 7 mg/dl Creatinine 0.82 mg/dl Est Creatinine Clear Calc Drug Dose 94.6 ml/min Estimated GFR () 114.5 Estimated GFR (Non- 98.8 BUN/Creatinine Ratio 7.9 Random Glucose 153 mg/dl Calcium Level 8.7 mg/dl Phosphorus Level 1.8 mg/dl Magnesium Level 2.7 mg/dl Total Bilirubin 0.3 mg/dl Aspartate Amino Transf (AST/SGOT) 8 U/L Alanine Aminotransferase (ALT/SGPT) 33 U/L Alkaline Phosphatase 74 U/L Total Protein 7.4 gm/dl Albumin 4.0 gm/dl Globulin 3.4 gm/dl Albumin/Globulin Ratio 1.2 Assessment and Plan 25 year old female presenting with altered mental status and unilateral weakness , admitted for meningitis. CSF studies suggestive of viral etiologies though cultures are still pending and she is being treated with antibiotics until these are resulted. Neurological exam is grossly unremarkable and signs of meningism do seem be resolving. The plan for her is as follows: Meningitis - CSF suggests viral etiology HSV and Lyme studies pending - Ceftriaxone coverage empirically until CSF cultures resulted - Improving clinical examination - MRI study negative for any acute findings - Discontinue Levaquin and Vancomycin - Discontinue Decadron as bacterial etiology unlikely - Monitor with daily neurological assessment Left Maxillary Sinusitis - As noted on CT - ENT consulted for evaluation History of Hypertension - Previous history of evaluation overall unknown by patient - BP stable so far since admission - Will watch BP and add in either PRN or chronic medication as necessary DVT Prophylaxis - Hold pharmacological anticoagulation, patient is low risk - SCDs Code Status - Level I Full Code Disposition - ICU - Await recommendations on when patient is ready for downgrade - Patient likely will be able to be discharged directly home once improving from acute illness Continued [facility] stay due to: multiple IV medications needed Discharge planning: home Reviewed: Pt Seen/Exam by Me Constitutional: denies: fever Respiratory: negative: short of breath Cardiovascular: denies chest pain Neurological/Psych: positive: headache, other (neck stiffness better but still present) General Appearance: no apparent distress Respiratory: lungs clear, no respiratory distress Cardiovascular: regular rate, rhythm Gastrointestinal: normal bowel sounds, non tender, soft Neurologic/Psychiatric: alert, oriented x 3 Skin Characteristics: warm/dry Assessment/Plan I have reviewed the medical record and performed a history and physical examination of this patient today. I have discussed the case with Dr. Ball. The above note reflects my findings, conclusions, and recommendations.
[2016-05-24] MEDS: ACETAMINOPHEN IV 100 ML IV PRN (20:01)
[2016-05-25] VITALS (7 sets, daily range): BP systolic 102–136; BP diastolic 58–82; PULSE 57–81; TEMP 36.8–37; O2SAT 91–100
[2016-05-25] MEDS: CEFTRIAXONE SOD INJ 2,000 MG in DEXTROSE 5% 50ML 50 ML IV SCH (04:00)
[2016-05-25] MEDS: NSS + 20MEQ KCL 1000ML 1,000 ML IV SCH (05:34)
[2016-05-25] MEDS: ACETAMINOPHEN IV 100 ML IV PRN (05:36)
[2016-05-25 05:43] LABS: BASO % 0.1 %; BASO ABS # 0.01 K/uL (0-0.2); COMPLETE YES; HEMATOCRIT 37.3 % (37-47); IG% 0.3 %; LYMPH % 16.4 %; MEAN CELL VOLUME 86.9 fL (80-100); MEAN CORPUSCULAR HEMOGLOBIN 29.8 pg (25-34); MEAN CORPUSCULAR HGB CONC 34.3 g/dl (32-36); MEAN PLATELET VOLUME 11.4 fL (7.4-10.4); MONO % 3.6 %; NEUT % 79.6 %; PLATELET COUNT 204 K/uL (130-400); RED BLOOD COUNT 4.29 M/uL (4.2-5.4)
[2016-05-25 06:01] LABS: PROTHROMBIN TIME (PATIENT) 11.1 SECONDS (9.0-12.0)
[2016-05-25 06:09] LABS: ALT/SGPT 23 U/L (12-78); AST/SGOT 7 U/L (15-37); BLOOD UREA NITROGEN 8 mg/dl (7-18); BUN/CREATININE RATIO 13.3 (10-20); CALCIUM 8.3 mg/dl (8.5-10.1); CARBON DIOXIDE 25 mmol/L (21-32); CHLORIDE 111 mmol/L (98-107); CREATININE 0.63 mg/dl (0.60-1.20); GLUCOSE 102 mg/dl (70-99); POTASSIUM 4.2 mmol/L (3.5-5.1); SODIUM 144 mmol/L (136-145)
[2016-05-25 06:13] LABS: ALKALINE PHOSPHATASE 65 U/L (45-117); PHOSPHORUS 2.7 mg/dl (2.5-4.9)
[2016-05-25] MEDS: INSULIN ASPART 100 UNITS/ML 3 ML PEN SC SCH ×4 (06:45→20:55)
--- NOTE | 2016-05-25 07:49 | Critical Care Progress Note ---
Critical Care Progress Note Date of Service May 25, 2016. ICU Day ICU Day Number: [address] 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 She never had any fever or rashes. Lumbar puncture in the ER revealed an elevated white count with normal glucose. c/o left sided headache this morning. Continues to have neck stiffness but is improved from yesterday. Objective GENERAL: Patient is in no acute distress. HEENT: No acute trauma, normocephalic atraumatic, mucous membranes moist, no nasal congestion, no scleral icterus. NECK: No stridor, no adenopathy LUNGS: Clear to auscultation bilaterally, no wheeze, no rhonchi, breath sounds equal. HEART: Without murmurs gallops or rubs, regular rate and rhythm. ABDOMEN: Soft, nontender, bowel sounds positive, no hernias, no peritonitis. EXTREMITIES: No cyanosis or edema, full range of motion of all the joints without pain or difficulty, no signs for acute trauma. NEUROLOGIC: Oriented x 3, no acute motor or sensory deficits, no focal weakness. SKIN: No rash, no jaundice, no diaphoresis. 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 She never had any fever or rashes. Lumbar puncture in the ER revealed an elevated white count with normal glucose. Neurology: - Alert awake and oriented currently - Workup for AMS: - Head CT: No acute process, left maxillary sinusitis - Brain MRI :no acute process - Electrolytes: Grossly within normal limits, slight decrease in K and magnesium - Urine toxicology including blood alcohol negative - Neurology consultation: Appreciate input ID: Meningitis likely viral: - LP done in the ER revealed CSF with elevated white count at 48, normal glucose of 52, total protein of 91.8. - CSF Gram stain: Moderate WBCs with no organisms - CSF culture, Lyme , HSV pending at this moment - Blood cultures pending - Lyme serology negative - ID consult- appreciate input - Continue vancomycin, ceftriaxone 2 g every 12 hours and acyclovir. ENT: - Acute left-sided maxillary sinusitis visualized on CT, likely viral - Patient asymptomatic - ENT consult ( possibility of early bacterial meningitis secondary to sinusitis though CSF appears to be viral etiology and sinusitis is restricted to left maxillary sinus ) Renal: - IV fluids: Continue NSS especially considering acyclovir CVS: - History of hypertension: Diagnosed at age 12 - Currently ranging in the 130s systolic and 80s diastolic - Noncompliant with medication - Unknown as to how much workup she has had - She will need further eval as an outpatient GI/FEN: - Low-sodium diet Full code Disposition: transfer to Med/surg Resident Physician Supervision Note: I was present with Dr. India Fernandez during the history and exam. I discussed the case with the resident and agree with the findings and plan as documented in the note. Any exceptions or clarifications are listed here: May get out of bed to chair. D/c isolation F/u HSV PCR. For transfer to med/surg Documented By: Thang Ramirez MD Consults & Procedures Consultants: Infectious disease. Neurology. ENT. Procedures: LP( done in ER) Data Medications: Current Inpatient Medications Medications (Trade) Dose Ordered Sig/Joshua Route Start Time Stop Time Status Last Admin Dose Admin Vancomycin HCl 1500 mg/Sodium Chloride 530 ml @ 200 mls/hr Q12H IV 05/24/16 10:00 06/03/16 09:59 05/24/16 20:33 200 MLS/HR Ceftriaxone Sodium 2000 mg/ Dextrose 70 ml @ 100 mls/hr Q12H IV 05/24/16 16:00 06/03/16 15:59 05/25/16 04:00 100 MLS/HR Acetaminophen (Ofirmev Iv) 100 ml @ 400 mls/hr Q8H PRN IV 05/24/16 05:30 06/23/16 05:29 05/25/16 05:36 400 MLS/HR Ondansetron HCl (Zofran Inj) 4 mg Q6H PRN IV 05/24/16 05:30 06/23/16 05:29 Insulin Aspart (novoLOG ASPART) SLIDING SCALE If C... ACHS SC 05/24/16 08:45 06/23/16 08:44 05/24/16 16:55 3 UNITS Glucose (Glucose 40% Gel) UD PRN PO 05/24/16 05:30 06/23/16 05:29 Glucose (Glucose Chew Tab) 1 tabs UD PRN PO 05/24/16 05:30 06/23/16 05:29 Dextrose (Dextrose 50% 50ML Syringe) 50 ml UD PRN IV 05/24/16 05:30 06/23/16 05:29 Glucagon (Glucagon Inj) 1 mg UD PRN SQ 05/24/16 05:30 06/23/16 05:29 Diphenhydramine HCl 25 mg 25 mg Q4H PRN IV 05/24/16 05:30 06/23/16 05:29 Potassium Chloride/Sodium Chloride (Nss + 20meq KCl 1000ml) 1,000 ml @ 100 mls/hr Q10H IV 05/24/16 08:45 06/23/16 08:44 05/25/16 05:34 100 MLS/HR Morphine Sulfate (MoRPHine SULFATE INJ) 2 mg Q2H PRN IV 05/24/16 05:30 06/07/16 05:29 05/24/16 11:41 2 MG Morphine Sulfate (MoRPHine SULFATE INJ) 4 mg Q2H PRN IV 05/24/16 05:30 06/07/16 05:29 05/24/16 16:53 4 MG Lorazepam (Ativan Inj) 0.5 mg Q4H PRN IV 05/24/16 05:45 06/23/16 05:44 Levonorgestrel (Mirena (Iud)) 1 ea CONTINOUS IU 05/24/16 05:45 06/23/16 05:44 Vancomycin HCl (Consult) 1 ea UD PRN N/A 05/24/16 06:45 06/23/16 06:44 Acyclovir Sodium 1 ea 1 ea UD PRN N/A 05/24/16 08:30 06/23/16 08:29 Acyclovir Sodium/ Dextrose (Zovirax Inj/D5 100ml) 108.6 ml @ 108.6 mls/ hr Q8H IV 05/24/16 16:00 06/03/16 05:59 05/25/16 00:00 108.6 MLS/HR I & O: 24-Hour Column 05/25/16 07:59 Intake Total 5052 ml Output Total 2700 ml Balance 2352 ml Vital Signs: Date Time Temp Pulse Resp B/P Pulse Ox O2 Delivery O2 Flow Rate FiO2 05/25/16 06:00 59 16 102/76 97 Room Air 05/25/16 04:00 97 Room Air 05/25/16 04:00 57 18 122/79 97 Room Air 05/25/16 02:00 61 16 121/69 97 05/25/16 00:00 37.0 64 15 104/58 97 Room Air 05/25/16 00:00 97 Room Air 05/24/16 22:00 63 15 103/54 97 05/24/16 20:00 96 Room Air 05/24/16 20:00 37.0 79 16 136/77 97 Room Air 05/24/16 18:00 90 20 119/70 96 Room Air 05/24/16 16:00 94 Room Air 05/24/16 16:00 37.0 95 24 127/86 94 Room Air 05/24/16 14:00 100 22 117/78 96 Room Air 05/24/16 12:00 94 Room Air 05/24/16 12:00 36.7 98 22 114/77 94 Room Air 05/24/16 10:00 92 26 129/82 96 Room Air 05/24/16 09:00 36.7 92 22 125/73 97 Room Air 05/24/16 08:30 36.7 92 22 125/73 96 Room Air Laboratory Results: Last 24 Hours Test 05/24/16 11:14 05/24/16 14:25 05/24/16 16:48 05/24/16 20:05 Bedside Glucose 120 mg/dl 139 mg/dl 111 mg/dl White Blood Count 11.09 K/uL Red Blood Count 4.57 M/uL Hemoglobin 13.6 g/dL Hematocrit 39.0 % Mean Corpuscular Volume 85.3 fL Mean Corpuscular Hemoglobin 29.8 pg Mean Corpuscular Hemoglobin Concent 34.9 g/dl Platelet Count 240 K/uL Mean Platelet Volume 11.3 fL Neutrophils (%) (Auto) 92.7 % Lymphocytes (%) (Auto) 6.9 % Monocytes (%) (Auto) 0.1 % Eosinophils (%) (Auto) 0.0 % Basophils (%) (Auto) 0.0 % Neutrophils # (Auto) 10.29 K/uL Lymphocytes # (Auto) 0.76 K/uL Monocytes # (Auto) 0.01 K/uL Eosinophils # (Auto) 0.00 K/uL Basophils # (Auto) 0.00 K/uL RDW Standard Deviation 39.8 fL RDW Coefficient of Variation 12.7 % Immature Granulocyte % (Auto) 0.3 % Immature Granulocyte # (Auto) 0.03 K/uL Sodium Level 141 mmol/L Potassium Level 4.1 mmol/L Chloride Level 111 mmol/L Carbon Dioxide Level 25 mmol/L Anion Gap 5.0 mmol/L Blood Urea Nitrogen 7 mg/dl Creatinine 0.82 mg/dl Est Creatinine Clear Calc Drug Dose 94.6 ml/min Estimated GFR () 114.5 Estimated GFR (Non- 98.8 BUN/Creatinine Ratio 7.9 Random Glucose 153 mg/dl Calcium Level 8.7 mg/dl Phosphorus Level 1.8 mg/dl Magnesium Level 2.7 mg/dl Total Bilirubin 0.3 mg/dl Aspartate Amino Transf (AST/SGOT) 8 U/L Alanine Aminotransferase (ALT/SGPT) 33 U/L Alkaline Phosphatase 74 U/L Total Protein 7.4 gm/dl Albumin 4.0 gm/dl Globulin 3.4 gm/dl Albumin/Globulin Ratio 1.2 Test 05/25/16 05:28 05/25/16 06:18 White Blood Count 12.20 K/uL Red Blood Count 4.29 M/uL Hemoglobin 12.8 g/dL Hematocrit 37.3 % Mean Corpuscular Volume 86.9 fL Mean Corpuscular Hemoglobin 29.8 pg Mean Corpuscular Hemoglobin Concent 34.3 g/dl Platelet Count 204 K/uL Mean Platelet Volume 11.4 fL Neutrophils (%) (Auto) 79.6 % Lymphocytes (%) (Auto) 16.4 % Monocytes (%) (Auto) 3.6 % Eosinophils (%) (Auto) 0.0 % Basophils (%) (Auto) 0.1 % Neutrophils # (Auto) 9.71 K/uL Lymphocytes # (Auto) 2.00 K/uL Monocytes # (Auto) 0.44 K/uL Eosinophils # (Auto) 0.00 K/uL Basophils # (Auto) 0.01 K/uL RDW Standard Deviation 41.9 fL RDW Coefficient of Variation 13.1 % Immature Granulocyte % (Auto) 0.3 % Immature Granulocyte # (Auto) 0.04 K/uL Prothrombin Time 11.1 SECONDS Prothromb Time International Ratio 1.0 Activated Partial Thromboplast Time 27.2 SECONDS Partial Thromboplastin Ratio 1.0 Sodium Level 144 mmol/L Potassium Level 4.2 mmol/L Chloride Level 111 mmol/L Carbon Dioxide Level 25 mmol/L Anion Gap 8.0 mmol/L Blood Urea Nitrogen 8 mg/dl Creatinine 0.63 mg/dl Est Creatinine Clear Calc Drug Dose 123.2 ml/min Estimated GFR () 143.5 Estimated GFR (Non- 123.8 BUN/Creatinine Ratio 13.3 Random Glucose 102 mg/dl Calcium Level 8.3 mg/dl Phosphorus Level 2.7 mg/dl Magnesium Level 2.0 mg/dl Total Bilirubin 0.3 mg/dl Direct Bilirubin < 0.1 mg/dl Aspartate Amino Transf (AST/SGOT) 7 U/L Alanine Aminotransferase (ALT/SGPT) 23 U/L Alkaline Phosphatase 65 U/L Total Protein 6.8 gm/dl Albumin 3.5 gm/dl Bedside Glucose 88 mg/dl
--- NOTE | 2016-05-25 09:22 | Progress Note ---
Subjective Date of Service: May 25, 2016. Subjective Pt evaluation today including: conversation w/ patient, physical exam, chart review, lab review pt seen in followup, doing well. still c/o vance although improved, right sided. no visual complaints. no f/c. no sinus pressure, saw ENT yesterday, no plans for drainage at this time. No n/v/d, eating well. No complaints. Asking when she will be d/c home. Tolerating abx. csf culture negative, lyme screen negative. hsv pcr pending. all remaining ros reviewed and are negative. Objective Vital Signs Date Time Temp Pulse Resp B/P Pulse Ox O2 Delivery O2 Flow Rate FiO2 05/25/16 06:00 59 16 102/76 97 Room Air 05/25/16 04:00 97 Room Air 05/25/16 04:00 57 18 122/79 97 Room Air 05/25/16 02:00 61 16 121/69 97 05/25/16 00:00 37.0 64 15 104/58 97 Room Air 05/25/16 00:00 97 Room Air 05/24/16 22:00 63 15 103/54 97 05/24/16 20:00 96 Room Air 05/24/16 20:00 37.0 79 16 136/77 97 Room Air 05/24/16 18:00 90 20 119/70 96 Room Air 05/24/16 16:00 94 Room Air 05/24/16 16:00 37.0 95 24 127/86 94 Room Air 05/24/16 14:00 100 22 117/78 96 Room Air 05/24/16 12:00 94 Room Air 05/24/16 12:00 36.7 98 22 114/77 94 Room Air 05/24/16 10:00 92 26 129/82 96 Room Air Physical Exam General Appearance: WD/WN, no apparent distress Eyes: normal inspection, EOMI ENT: + pertinent finding (no nuchal rigidity) Neck: supple Respiratory/Chest: lungs clear Cardiovascular: regular rate, rhythm, no edema Abdomen: non tender, soft Extremities: non-tender, normal inspection, no pedal edema Neurologic/Psychiatric: alert, oriented x 3 Skin: normal color, no rash Laboratory Results Item Value Date Time Gram Stain - Final Resulted 05/24/16 0330 Cerebral Spinal Fluid Last 24 Hours Test 05/24/16 11:14 05/24/16 14:25 05/24/16 16:48 05/24/16 20:05 Bedside Glucose 120 mg/dl 139 mg/dl 111 mg/dl White Blood Count 11.09 K/uL Red Blood Count 4.57 M/uL Hemoglobin 13.6 g/dL Hematocrit 39.0 % Mean Corpuscular Volume 85.3 fL Mean Corpuscular Hemoglobin 29.8 pg Mean Corpuscular Hemoglobin Concent 34.9 g/dl Platelet Count 240 K/uL Mean Platelet Volume 11.3 fL Neutrophils (%) (Auto) 92.7 % Lymphocytes (%) (Auto) 6.9 % Monocytes (%) (Auto) 0.1 % Eosinophils (%) (Auto) 0.0 % Basophils (%) (Auto) 0.0 % Neutrophils # (Auto) 10.29 K/uL Lymphocytes # (Auto) 0.76 K/uL Monocytes # (Auto) 0.01 K/uL Eosinophils # (Auto) 0.00 K/uL Basophils # (Auto) 0.00 K/uL RDW Standard Deviation 39.8 fL RDW Coefficient of Variation 12.7 % Immature Granulocyte % (Auto) 0.3 % Immature Granulocyte # (Auto) 0.03 K/uL Sodium Level 141 mmol/L Potassium Level 4.1 mmol/L Chloride Level 111 mmol/L Carbon Dioxide Level 25 mmol/L Anion Gap 5.0 mmol/L Blood Urea Nitrogen 7 mg/dl Creatinine 0.82 mg/dl Est Creatinine Clear Calc Drug Dose 94.6 ml/min Estimated GFR () 114.5 Estimated GFR (Non- 98.8 BUN/Creatinine Ratio 7.9 Random Glucose 153 mg/dl Calcium Level 8.7 mg/dl Phosphorus Level 1.8 mg/dl Magnesium Level 2.7 mg/dl Total Bilirubin 0.3 mg/dl Aspartate Amino Transf (AST/SGOT) 8 U/L Alanine Aminotransferase (ALT/SGPT) 33 U/L Alkaline Phosphatase 74 U/L Total Protein 7.4 gm/dl Albumin 4.0 gm/dl Globulin 3.4 gm/dl Albumin/Globulin Ratio 1.2 Test 05/25/16 05:28 05/25/16 06:18 White Blood Count 12.20 K/uL Red Blood Count 4.29 M/uL Hemoglobin 12.8 g/dL Hematocrit 37.3 % Mean Corpuscular Volume 86.9 fL Mean Corpuscular Hemoglobin 29.8 pg Mean Corpuscular Hemoglobin Concent 34.3 g/dl Platelet Count 204 K/uL Mean Platelet Volume 11.4 fL Neutrophils (%) (Auto) 79.6 % Lymphocytes (%) (Auto) 16.4 % Monocytes (%) (Auto) 3.6 % Eosinophils (%) (Auto) 0.0 % Basophils (%) (Auto) 0.1 % Neutrophils # (Auto) 9.71 K/uL Lymphocytes # (Auto) 2.00 K/uL Monocytes # (Auto) 0.44 K/uL Eosinophils # (Auto) 0.00 K/uL Basophils # (Auto) 0.01 K/uL RDW Standard Deviation 41.9 fL RDW Coefficient of Variation 13.1 % Immature Granulocyte % (Auto) 0.3 % Immature Granulocyte # (Auto) 0.04 K/uL Prothrombin Time 11.1 SECONDS Prothromb Time International Ratio 1.0 Activated Partial Thromboplast Time 27.2 SECONDS Partial Thromboplastin Ratio 1.0 Sodium Level 144 mmol/L Potassium Level 4.2 mmol/L Chloride Level 111 mmol/L Carbon Dioxide Level 25 mmol/L Anion Gap 8.0 mmol/L Blood Urea Nitrogen 8 mg/dl Creatinine 0.63 mg/dl Est Creatinine Clear Calc Drug Dose 123.2 ml/min Estimated GFR () 143.5 Estimated GFR (Non- 123.8 BUN/Creatinine Ratio 13.3 Random Glucose 102 mg/dl Calcium Level 8.3 mg/dl Phosphorus Level 2.7 mg/dl Magnesium Level 2.0 mg/dl Total Bilirubin 0.3 mg/dl Direct Bilirubin < 0.1 mg/dl Aspartate Amino Transf (AST/SGOT) 7 U/L Alanine Aminotransferase (ALT/SGPT) 23 U/L Alkaline Phosphatase 65 U/L Total Protein 6.8 gm/dl Albumin 3.5 gm/dl Bedside Glucose 88 mg/dl Assessment and Plan (1) Meningitis Assessment & Plan: suspect viral etiology, can stop precautions as she has had 24h abx. csf culture negative. If she continues with clinical improvement and cultures remain negative, can likely stop abx tomorrow. steroids stopped, wbc slightly increased, suspect secondary to steroids, not worsening infection, continue to follow. continue acyclovir for now, if hsv pcr negative, can stop. Hopefully, will be ready for d/c soon. Continued [facility] stay due to: multiple IV medications needed Discharge planning: home
[2016-05-25] MEDS ORDERED: VANCOMYCIN TROUGH SCH (09:30)
[2016-05-25] MEDS: DEXTROSE 5% IV SCH ×5 (09:30→23:36)
[2016-05-25] MEDS: ACYCLOVIR SOD IV SCH ×5 (09:30→23:36)
[2016-05-25] MEDS ORDERED: IBUPROFEN 600 MG TAB PO ONE (11:00)
[2016-05-25] MEDS: SODIUM CHLORIDE 0.9% 1000ML 1,000 ML IV SCH ×2 (11:32→20:00)
[2016-05-25] MEDS: IBUPROFEN 600 MG TAB PO SCH ×3 (12:08→20:55)
--- NOTE | 2016-05-25 14:14 | Family Medicine Progress Note ---
Progress Note Date of Service May 25, 2016. Subjective Pt evaluation today including: conversation w/ patient, physical exam, chart review, lab review Pain: low grade left forehead dull pain PO Intake: Good Voiding: no voiding problems, no incontinence Feels well today, no complaints Neck stiffness much better Notes that she is aware of diagnosis for HTN but that she is non-compliant with medications Cannot recall what medication she is on. Constitutional: No chills, No fever Eyes: No eye pain, No redness, No worsening of vision ENT: No nasal symptoms, No sore throat, No tinnitus Respiratory: No cough, No shortness of breath, No sputum, No wheezing Cardiovascular: No chest pain, No claudication, No orthopnea, No palpitations Abdomen: No constipation, No diarrhea, No nausea, No pain, No vomiting Musculoskeletal: No joint pain, No muscle pain Female : No dysuria, No hematuria, No urinary frequency Neurologic: No numbness/tingling, No vertigo, No weakness Psychiatric: No anxiety, No depression symptoms, No insomnia Heme: No abnormal bleeding/bruising, No clotting problems, No swollen lymph nodes Endo: No excessive thirst, No excessive urination, No fatigue Skin: No color change, No new/changing skin lesions, No rash Medications Current Inpatient Medications Medications (Trade) Dose Ordered Sig/Joshua Route Start Time Stop Time Status Last Admin Dose Admin Acetaminophen (Ofirmev Iv) 100 ml @ 400 mls/hr Q8H PRN IV 05/24/16 05:30 06/23/16 05:29 05/25/16 05:36 400 MLS/HR Ondansetron HCl (Zofran Inj) 4 mg Q6H PRN IV 05/24/16 05:30 06/23/16 05:29 Insulin Aspart (novoLOG ASPART) SLIDING SCALE If C... ACHS SC 05/24/16 08:45 06/23/16 08:44 05/25/16 12:14 8 UNITS Glucose (Glucose 40% Gel) UD PRN PO 05/24/16 05:30 06/23/16 05:29 Glucose (Glucose Chew Tab) 1 tabs UD PRN PO 05/24/16 05:30 06/23/16 05:29 Dextrose (Dextrose 50% 50ML Syringe) 50 ml UD PRN IV 05/24/16 05:30 06/23/16 05:29 Glucagon (Glucagon Inj) 1 mg UD PRN SQ 05/24/16 05:30 06/23/16 05:29 Diphenhydramine HCl (Benadryl Inj) 25 mg Q4H PRN IV 05/24/16 05:30 06/23/16 05:29 Lorazepam (Ativan Inj) 0.5 mg Q4H PRN IV 05/24/16 05:45 06/23/16 05:44 Levonorgestrel (Mirena (Iud)) 1 ea CONTINOUS IU 05/24/16 05:45 06/23/16 05:44 Acyclovir Sodium 1 ea 1 ea UD PRN N/A 05/24/16 08:30 06/23/16 08:29 Acyclovir Sodium 430 mg/Dextrose 108.6 ml @ 108.6 mls/ hr Q8H IV 05/24/16 16:00 06/03/16 05:59 05/25/16 09:30 108.6 MLS/HR Sodium Chloride (Nss 1000ml) 1,000 ml @ 100 mls/hr Q10H IV 05/25/16 10:00 06/24/16 09:59 05/25/16 11:32 100 MLS/HR Ibuprofen (Motrin Tab) 600 mg QID PO 05/25/16 12:15 06/24/16 12:59 Objective Vital Signs Date Time Temp Pulse Resp B/P Pulse Ox O2 Delivery O2 Flow Rate FiO2 05/25/16 08:00 36.8 81 16 110/68 91 Room Air 05/25/16 08:00 Room Air 05/25/16 06:00 59 16 102/76 97 Room Air 05/25/16 04:00 97 Room Air 05/25/16 04:00 57 18 122/79 97 Room Air 05/25/16 02:00 61 16 121/69 97 05/25/16 00:00 37.0 64 15 104/58 97 Room Air 05/25/16 00:00 97 Room Air 05/24/16 22:00 63 15 103/54 97 05/24/16 20:00 96 Room Air 05/24/16 20:00 37.0 79 16 136/77 97 Room Air 05/24/16 18:00 90 20 119/70 96 Room Air 05/24/16 16:00 94 Room Air 05/24/16 16:00 37.0 95 24 127/86 94 Room Air Physical Exam General Appearance: WD/WN, no apparent distress Eyes: normal inspection, PERRL, EOMI ENT: normal ENT inspection, hearing grossly normal, pharynx normal Neck: supple, no adenopathy, no JVD Respiratory/Chest: chest non-tender, lungs clear, normal breath sounds Cardiovascular: regular rate, rhythm, no gallop, no murmur Abdomen: normal bowel sounds, non tender, soft Extremities: non-tender, no pedal edema 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, alert, normal mood/affect, oriented x 3 Skin: normal color, warm/dry, no rash Lymphatic: no adenopathy Laboratory Results Last 24 Hours Test 05/24/16 14:25 05/24/16 16:48 05/24/16 20:05 05/25/16 05:28 White Blood Count 11.09 K/uL 12.20 K/uL Red Blood Count 4.57 M/uL 4.29 M/uL Hemoglobin 13.6 g/dL 12.8 g/dL Hematocrit 39.0 % 37.3 % Mean Corpuscular Volume 85.3 fL 86.9 fL Mean Corpuscular Hemoglobin 29.8 pg 29.8 pg Mean Corpuscular Hemoglobin Concent 34.9 g/dl 34.3 g/dl Platelet Count 240 K/uL 204 K/uL Mean Platelet Volume 11.3 fL 11.4 fL Neutrophils (%) (Auto) 92.7 % 79.6 % Lymphocytes (%) (Auto) 6.9 % 16.4 % Monocytes (%) (Auto) 0.1 % 3.6 % Eosinophils (%) (Auto) 0.0 % 0.0 % Basophils (%) (Auto) 0.0 % 0.1 % Neutrophils # (Auto) 10.29 K/uL 9.71 K/uL Lymphocytes # (Auto) 0.76 K/uL 2.00 K/uL Monocytes # (Auto) 0.01 K/uL 0.44 K/uL Eosinophils # (Auto) 0.00 K/uL 0.00 K/uL Basophils # (Auto) 0.00 K/uL 0.01 K/uL RDW Standard Deviation 39.8 fL 41.9 fL RDW Coefficient of Variation 12.7 % 13.1 % Immature Granulocyte % (Auto) 0.3 % 0.3 % Immature Granulocyte # (Auto) 0.03 K/uL 0.04 K/uL Sodium Level 141 mmol/L 144 mmol/L Potassium Level 4.1 mmol/L 4.2 mmol/L Chloride Level 111 mmol/L 111 mmol/L Carbon Dioxide Level 25 mmol/L 25 mmol/L Anion Gap 5.0 mmol/L 8.0 mmol/L Blood Urea Nitrogen 7 mg/dl 8 mg/dl Creatinine 0.82 mg/dl 0.63 mg/dl Est Creatinine Clear Calc Drug Dose 94.6 ml/min 123.2 ml/min Estimated GFR () 114.5 143.5 Estimated GFR (Non- 98.8 123.8 BUN/Creatinine Ratio 7.9 13.3 Random Glucose 153 mg/dl 102 mg/dl Calcium Level 8.7 mg/dl 8.3 mg/dl Phosphorus Level 1.8 mg/dl 2.7 mg/dl Magnesium Level 2.7 mg/dl 2.0 mg/dl Total Bilirubin 0.3 mg/dl 0.3 mg/dl Aspartate Amino Transf (AST/SGOT) 8 U/L 7 U/L Alanine Aminotransferase (ALT/SGPT) 33 U/L 23 U/L Alkaline Phosphatase 74 U/L 65 U/L Total Protein 7.4 gm/dl 6.8 gm/dl Albumin 4.0 gm/dl 3.5 gm/dl Globulin 3.4 gm/dl Albumin/Globulin Ratio 1.2 Bedside Glucose 139 mg/dl 111 mg/dl Prothrombin Time 11.1 SECONDS Prothromb Time International Ratio 1.0 Activated Partial Thromboplast Time 27.2 SECONDS Partial Thromboplastin Ratio 1.0 Direct Bilirubin < 0.1 mg/dl Test 05/25/16 06:18 05/25/16 11:16 05/25/16 13:30 Bedside Glucose 88 mg/dl 76 mg/dl Assessment and Plan 25 year old female presenting with altered mental status and unilateral weakness , admitted for meningitis. She is day 2 of her admission. CSF studies to date are negative. I think that this point we start scaling back on antibiotics. She appears well and continues to improve. I do not see any disposition issues at this time as long as she continues on this trajectory. The plan for her is as follows: Meningitis - CSF suggests viral etiology HSV and Lyme studies pending - CSF cultures negative to date: Vancomycin and Rocephin discontinued - Normal clinical examination today; no meningeal findings - MRI study negative for any acute findings; neurology recommendations appreciated - Remove contact islolation precautions; transfer to med/surg floor Left Maxillary Sinusitis - ENT recommendations appreciated - No indication for surgical intervention at this time; will continue to follow History of Hypertension - Previous history of evaluation overall unknown by patient - Uncertain of medication - BP stable so far since admission; will need to monitor vitals closely DVT Prophylaxis - Hold pharmacological anticoagulation, patient is low risk - Recommend ambulation as tolerated - SCDs Code Status - Level I Full Code Disposition - Downgrade to med/surg - Can likely be discharged home Discharge planning: home Reviewed: Pt Seen/Exam by Me History headache and neck stiffness much improved Constitutional: denies: fever Respiratory: negative: short of breath Cardiovascular: denies chest pain Neurological/Psych: negative: numbness, weakness General Appearance: no apparent distress Respiratory: lungs clear, no respiratory distress Cardiovascular: regular rate, rhythm Gastrointestinal: normal bowel sounds, non tender, soft Neurologic/Psychiatric: alert, oriented x 3 Skin Characteristics: warm/dry Assessment/Plan I have reviewed the medical record and performed a history and physical examination of this patient today. I have discussed the case with Dr. Ball. The above note reflects my findings, conclusions, and recommendations.
[2016-05-25 14:31] LABS: HSV TYPE 1 DNA Not Detected (Not Detected); HSV TYPE 1&2 DNA SOURCE CSF; HSV TYPE 2 DNA Not Detected (Not Detected)
--- NOTE | 2016-05-25 14:56 | Medical Student: [facility] ---
Med Student Progress Note Date of Service May 25, 2016. Subjective Pt evaluation today including: conversation w/ patient, lab review, review of studies Pain: denies pain Voiding: no voiding problems Patient is a 25 year old female who presented to the ED on 05/24 with altered mental status, headache, and right -side weakness. Day 2 of admission for viral meningitis. No acute events overnight. Patient feels "much better" today. Denies nausea, vomiting, fevers, chest pain, shortness of breath, and neck pain. Still has a mild headache which is being controlled with acetaminophen 6q hours. Patient wants to know if she can shower with her IVs and her LP site. She is looking forward to going home soon. Review of Systems Constitutional: No fever Respiratory: No cough, No shortness of breath, No sputum Cardiac: No chest pain Abdomen: No constipation, No diarrhea, No nausea, No vomiting Female : No dysuria, No incontinence, No urinary frequency Objective Vital Signs Date Time Temp Pulse Resp B/P Pulse Ox O2 Delivery O2 Flow Rate FiO2 05/25/16 08:00 36.8 81 16 110/68 91 Room Air 05/25/16 08:00 Room Air 05/25/16 06:00 59 16 102/76 97 Room Air 05/25/16 04:00 97 Room Air 05/25/16 04:00 57 18 122/79 97 Room Air 05/25/16 02:00 61 16 121/69 97 05/25/16 00:00 37.0 64 15 104/58 97 Room Air 05/25/16 00:00 97 Room Air 05/24/16 22:00 63 15 103/54 97 05/24/16 20:00 96 Room Air 05/24/16 20:00 37.0 79 16 136/77 97 Room Air 05/24/16 18:00 90 20 119/70 96 Room Air 05/24/16 16:00 94 Room Air 05/24/16 16:00 37.0 95 24 127/86 94 Room Air Physical Exam General Appearance: WD/WN, no apparent distress Neck: supple, no adenopathy, no JVD, no carotid bruits Respiratory/Chest: chest non-tender, lungs clear, normal breath sounds, no respiratory distress, no accessory muscle use Cardiovascular: regular rate, rhythm, no gallop, no murmur Abdomen: normal bowel sounds, non tender, soft, no organomegaly, no pulsatile mass Extremities: no pedal edema Neurologic/Psychiatric: alert, normal mood/affect, oriented x 3 Skin: normal color, warm/dry Laboratory Results Last 24 Hours Test 05/24/16 16:48 05/24/16 20:05 05/25/16 05:28 05/25/16 06:18 Bedside Glucose 139 mg/dl 111 mg/dl 88 mg/dl White Blood Count 12.20 K/uL Red Blood Count 4.29 M/uL Hemoglobin 12.8 g/dL Hematocrit 37.3 % Mean Corpuscular Volume 86.9 fL Mean Corpuscular Hemoglobin 29.8 pg Mean Corpuscular Hemoglobin Concent 34.3 g/dl Platelet Count 204 K/uL Mean Platelet Volume 11.4 fL Neutrophils (%) (Auto) 79.6 % Lymphocytes (%) (Auto) 16.4 % Monocytes (%) (Auto) 3.6 % Eosinophils (%) (Auto) 0.0 % Basophils (%) (Auto) 0.1 % Neutrophils # (Auto) 9.71 K/uL Lymphocytes # (Auto) 2.00 K/uL Monocytes # (Auto) 0.44 K/uL Eosinophils # (Auto) 0.00 K/uL Basophils # (Auto) 0.01 K/uL RDW Standard Deviation 41.9 fL RDW Coefficient of Variation 13.1 % Immature Granulocyte % (Auto) 0.3 % Immature Granulocyte # (Auto) 0.04 K/uL Prothrombin Time 11.1 SECONDS Prothromb Time International Ratio 1.0 Activated Partial Thromboplast Time 27.2 SECONDS Partial Thromboplastin Ratio 1.0 Sodium Level 144 mmol/L Potassium Level 4.2 mmol/L Chloride Level 111 mmol/L Carbon Dioxide Level 25 mmol/L Anion Gap 8.0 mmol/L Blood Urea Nitrogen 8 mg/dl Creatinine 0.63 mg/dl Est Creatinine Clear Calc Drug Dose 123.2 ml/min Estimated GFR () 143.5 Estimated GFR (Non- 123.8 BUN/Creatinine Ratio 13.3 Random Glucose 102 mg/dl Calcium Level 8.3 mg/dl Phosphorus Level 2.7 mg/dl Magnesium Level 2.0 mg/dl Total Bilirubin 0.3 mg/dl Direct Bilirubin < 0.1 mg/dl Aspartate Amino Transf (AST/SGOT) 7 U/L Alanine Aminotransferase (ALT/SGPT) 23 U/L Alkaline Phosphatase 65 U/L Total Protein 6.8 gm/dl Albumin 3.5 gm/dl Test 05/25/16 11:16 05/25/16 13:30 Bedside Glucose 76 mg/dl Assessment and Plan Assessment and Plan: ASSESSMENT Patient is a 25 year old female who presented to the ED on 05/24 with altered mental status, headache, and right -side weakness. Day 2 of admission for viral meningitis. Currently downgraded from ICU to floor status. Considering discharge in if HSV and influenza labs are negative. PLAN 1) Meningitis - CSF profile is suggestive of a viral etiology -CSF cultures negative to date, discontinue Vancomycin and Ceftriaxone -Patient off contact precautions. -HSV and influenza labs pending, continue Acyclovir 2) Left maxillary sinusitis -Patient seen by ENT, no indication for surgical intervention at this time. 3) History of -induced HTN -Blood pressure has been stable since admission. -Not on any medications at home. 4) DVT prophylaxis -SCDs and ambulation as tolerated. -Hold anticoagulation at this time as patient is low risk. 5) Code status -Level I full code Continued [facility] stay due to: multiple IV medications needed Discharge planning: home
[2016-05-25 15:17] LABS: INFLUENZA A PCR Neg for Influ A (NEG); INFLUENZA B PCR Neg for Influ B (NEG)
[2016-05-26] VITALS: BP 119/81; PULSE 69; TEMP 36.5; O2SAT 98
[2016-05-26] MEDS: SODIUM CHLORIDE 0.9% 1000ML 1,000 ML IV SCH (05:57)
[2016-05-26 07:16] LABS: BASO % 0.3 %; BASO ABS # 0.02 K/uL (0-0.2); COMPLETE YES; EOS % 0.4 %; HEMATOCRIT 36.8 % (37-47); IG% 0.1 %; LYMPH % 43.7 %; LYMPH ABS # 2.97 K/uL (1.2-3.4); MEAN CELL VOLUME 88.5 fL (80-100); MEAN CORPUSCULAR HEMOGLOBIN 29.8 pg (25-34); MEAN CORPUSCULAR HGB CONC 33.7 g/dl (32-36); MEAN PLATELET VOLUME 11.8 fL (7.4-10.4); MONO % 4.9 %; NEUT % 50.6 %; PLATELET COUNT 181 K/uL (130-400); RED BLOOD COUNT 4.16 M/uL (4.2-5.4); WHITE BLOOD COUNT 6.79 K/uL (4.8-10.8)
[2016-05-26 08:02] VITALS: BP 132/87; PULSE 68; TEMP 36.7; O2SAT 99
[2016-05-26] MEDS: IBUPROFEN 600 MG TAB PO SCH (08:48)
[2016-05-26] MEDS: INSULIN ASPART 100 UNITS/ML 3 ML PEN SC SCH ×2 (08:55→11:00)
--- NOTE | 2016-05-26 10:36 | Progress Note ---
Subjective Date of Service: May 26, 2016. Subjective Pt evaluation today including: conversation w/ patient, physical exam, chart review, lab review pt transferred from ICU, doing well. Denies vance. no f/c. OOB to chair on my exam , asking to go home. No complaints today. HSV pcr negative, culture negative, blood culture negative, lyme titer negative. All antimicrobials have been stopped. No sinus pain/congestion. All remaining ros reviewed and are negative. Objective Vital Signs Date Time Temp Pulse Resp B/P Pulse Ox O2 Delivery O2 Flow Rate FiO2 05/26/16 08:02 36.7 68 16 132/87 99 Room Air 05/26/16 00:00 36.5 69 14 119/81 98 Room Air 05/26/16 00:00 Room Air 05/25/16 16:00 98 Room Air 05/25/16 15:57 36.8 73 16 136/82 100 Room Air Physical Exam General Appearance: WD/WN, no apparent distress Eyes: normal inspection, EOMI Neck: supple Respiratory/Chest: lungs clear, normal breath sounds, no respiratory distress Cardiovascular: regular rate, rhythm, no edema Abdomen: non tender, soft Extremities: non-tender, normal inspection, no pedal edema Neurologic/Psychiatric: alert, oriented x 3 Skin: normal color Laboratory Results Item Value Date Time Gram Stain - Final Resulted 05/24/16 0335 Cerebral Spinal Fluid Blood Culture - Preliminary Resulted 05/24/16 0845 Blood NO GROWTH TO DATE. Blood Culture - Preliminary Resulted 05/24/16 0900 Blood NO GROWTH TO DATE. Last 24 Hours Test 05/25/16 11:16 05/25/16 13:30 05/25/16 16:30 05/25/16 20:29 Bedside Glucose 76 mg/dl 80 mg/dl 88 mg/dl Influenza Type A (RT-PCR) Neg for Influ A Influenza Type B (RT-PCR) Neg for Influ B Test 05/26/16 06:42 05/26/16 06:54 05/26/16 07:56 White Blood Count 6.79 K/uL Red Blood Count 4.16 M/uL Hemoglobin 12.4 g/dL Hematocrit 36.8 % Mean Corpuscular Volume 88.5 fL Mean Corpuscular Hemoglobin 29.8 pg Mean Corpuscular Hemoglobin Concent 33.7 g/dl Platelet Count 181 K/uL Mean Platelet Volume 11.8 fL Neutrophils (%) (Auto) 50.6 % Lymphocytes (%) (Auto) 43.7 % Monocytes (%) (Auto) 4.9 % Eosinophils (%) (Auto) 0.4 % Basophils (%) (Auto) 0.3 % Neutrophils # (Auto) 3.43 K/uL Lymphocytes # (Auto) 2.97 K/uL Monocytes # (Auto) 0.33 K/uL Eosinophils # (Auto) 0.03 K/uL Basophils # (Auto) 0.02 K/uL RDW Standard Deviation 42.4 fL RDW Coefficient of Variation 13.1 % Immature Granulocyte % (Auto) 0.1 % Immature Granulocyte # (Auto) 0.01 K/uL Bedside Glucose 73 mg/dl Assessment and Plan (1) Meningitis Assessment & Plan: viral in etiology, clinically improved, all csf studies and cultures negative. Agree with stopping antimicrobials. Ok for d/c from Id standpoint. Continued [facility] stay due to: multiple IV medications needed Discharge planning: home
--- NOTE | 2016-05-26 11:49 | Discharge Summary ---
Discharge Summary Date of Service May 26, 2016. (Uriel Ball MD) Discharge Summary Admission Date: May 24, 2016 at 06:20 Discharge Date: May 26, 2016 Discharge Disposition: Home Principal Diagnosis: Viral Meningitis Immunizations: Have You Had Influenza Vaccine: Yes Influenza Vaccine Date: Dec 24, 2010 History of Tetanus Vaccine?: Unknown Procedures: HEAD CT NONCONTRAST CT DOSE: 537.48 mGy.cm HISTORY: Altered mental status TECHNIQUE: Multiaxial CT images of the head were performed without the use of intravenous contrast. Automated exposure control was utilized for this study. Comparison: None. Findings: Air-fluid level within the left maxillary sinus. The mastoid air cells are clear. The calvarium and skull base are intact. The ventricles and sulci are within normal limits. There is no mass, hematoma, midline shift, or acute infarct. Impression: No acute intracranial abnormality. Acute left maxillary sinusitis. Electronically signed by: Babatunde Peña M.D. 05/24/2016 7:29 AM Dictated Date/Time: 05/24/2016 7:27 AM MRI OF THE BRAIN WITHOUT AND WITH IV CONTRAST CLINICAL HISTORY: meningitis headache COMPARISON STUDY: No previous studies for comparison. TECHNIQUE: Utilizing a 1.5 Andria magnet and dedicated coil, multiplanar, multiecho imaging of the brain was performed pre and postcontrast administration. IV administration of 8.5 mL of Gadavist contrast was uneventful. FINDINGS: Diffusion-weighted images are unremarkable. No evidence for an acute ischemic event. Signal characteristics are unremarkable. No significant postcontrast enhancement. IMPRESSION: Normal study. Electronically signed by: Valentín Tong M.D. 05/24/2016 8:13 AM Dictated Date/Time: 05/24/2016 8:10 AM Consultations: Neurology Infectious Disease (Uriel Ball MD) Medication Reconciliation Continued Medications: Snmpyan-Umklqafddlxyd-Nxbrtwhq (Excedrin Migraine) 1 Tab Tab 1 DOSE PO UD PRN for Migraine Levonorgestrel (Iud) (Mirena) 20 Mcg/24 Hr Iud 1 DOSE INT UTER CONTINOUS Discharge Exam Review of Systems: Constitutional: No chills, No fever, No sweats Eyes: No discharge, No eye pain, No redness ENT: No nasal symptoms, No sore throat, No tinnitus, No unusual epistaxis Respiratory: No cough, No sputum, No wheezing Cardiovascular: No chest pain, No orthopnea, No palpitations Abdomen: No constipation, No diarrhea, No nausea, No pain, No vomiting Musculoskeletal: No joint pain, No muscle pain Genitourinary - Female: No urinary frequency, No urinary urgency Genitourinary - Male: No dysuria, No hematuria Neurologic: No numbness/tingling, No vertigo, No weakness Hematologic / Lymphatic: No clotting problems, No night sweats, No swollen lymph nodes Integumentary: No color change, No new/changing skin lesions, No rash Physical Exam: General Appearance: WD/WN, no apparent distress Eyes: normal inspection, EOMI ENT: hearing grossly normal, TMs normal, pharynx normal Neck: supple, no adenopathy, no JVD Respiratory/Chest: lungs clear, no respiratory distress Cardiovascular: regular rate, rhythm, no gallop, no murmur Abdomen / GI: normal bowel sounds, non tender, soft Extremities: no calf tenderness, no pedal edema Neurologic/Psychiatric: group counselor II-XII nml as tested, alert, normal mood/affect , oriented x 3 Skin: normal color, warm/dry, no rash Lymphatic: no adenopathy (Uriel Ball MD) Review of Systems: Constitutional: No fever Respiratory: No shortness of breath Cardiovascular: No chest pain Musculoskeletal: No muscle pain Neurologic: No numbness/tingling Physical Exam: General Appearance: no apparent distress Respiratory/Chest: lungs clear, no respiratory distress Cardiovascular: regular rate, rhythm Abdomen / GI: normal bowel sounds, non tender, soft Neurologic/Psychiatric: alert, oriented x 3 Skin: warm/dry (Kiara Barnhart M.D.) Hospital Course Patient was admitted for altered mental status and weakness. She was brought to the ED by her ambulance. LP in the ED was remarkable for meningitis. Also reports URI symptoms recently. She was started on Levaquin, Vancomycin and Rocephin. She did get one dose of Decadron initially LP revealed elevated WBC and protein but normal glucose; findings consistent with viral meningitis. HSV and Lyme Panels were both negative. CSF cultures were negative and antibiotics were discontinued. CT did report a sinusitis. There was concern about possible source of infection. ENT was consulted but there did not feel the sinusitis was the source or required any further intervention Patient as seen by neurology who felt there were no abnormalities on examination. CT and MRI brain were grossly unremarkable. Patient does not have PCP and needs to establish care. She repots a history of HTN but non-compliant with medication. BPs were stable in hospital and PCP needs to follow-up on this to ensure she does not require long-term care. She was stable at the time of discharge. Total Time Spent: Less than 30 minutes This includes examination of the patient, discharge planning, medication reconciliation, and communication with other providers. (Uriel Ball MD) I have reviewed the medical record and performed a history and physical examination of this patient today. I have discussed the case with Dr. Ball. The above note reflects my findings, conclusions, and recommendations. Total Time Spent: Greater than 30 minutes (35 min) (Kiara Barnhart M.D.) Discharge Instructions Please refer to the electronic Patient Visit Report (Discharge Instructions) for additional information. (Uriel Ball MD) Follow-Up PCP in 7-10 days to ensure she continues to improve (Uriel Ball MD) Additional Copies To Agnieszka Miller MD
--- NOTE | 2016-05-26 11:59 | Discharge Instructions ---
Discharge Instructions Date of Service May 26, 2016. Admission Reason for Admission: Altered Mental Status,Meningitis Discharge Discharge Diagnosis / Problem: Viral meningitis Discharge Goals Goal(s): Decrease discomfort, Improve function, Increase independence, Improve disease control Activity Recommendations Activity Limitations: resume your previous activity Lifting Limitations: none Exercise/Sports Limitations: gradually increase as tolerated May Resume Sexual Activity: when tolerated Shower/Bathe: no limitations Weightbearing Status: Left weightbearing (as tolerated), Right weightbearing ( as tolerated) . Instructions / Follow-Up Instructions / Follow-Up You were diagnosed with viral meningitis. We were initially concerned that it was caused by a bacteria so you were started on IV antibiotics. We did a lumbar puncture and analyzed your spinal fluid which had findings consistent with a viral infection. We sent the spinal fluid for culture and it did not grow any bacteria. Therefore, we stopped your antibiotics. We also checked your spinal fluid for herpes and Lyme disease. Both were negative. You did have a CT and an MRI of the brain which were both normal. Our neurologist saw you and did not identify any abnormalities on your examination or imaging studies. During your hospital stay, you made a good recovery and we feel you can be discharged home to continue your care there. It is important that you follow up with a primary care provider. You did note that you have a history of high blood pressure and are supposed to be on medications. However, you had normal blood pressures while in the hospital so we did not start any medications during your stay. This should be followed up by a family doctor in case your blood pressure goes up once you are discharged. Resume daily activities as tolerated. Resume home medication as prescribed. If you are looking for a primary care provider, Dr. Uriel Ball ([facility]) would be glad to see you in the clinic. Our pillowcase sewer will help you set up an appointment if needed. His office number is: [phone] Current Hospital Diet Patient's current hospital diet: Low Sodium Diet (2gm Na) Discharge Diet Recommended Diet: Regular Diet Fluid Restriction: None Pending Studies Studies pending at discharge: no Work Instructions Lifting Limitations: none Medical Emergencies . Who to Call and When: Medical Emergencies: If at any time you feel your situation is an emergency, please call 911 immediately. . Non-Emergent Contact Non-Emergency issues call your: Primary Care Provider Call Non-Emergent contact if: you have a fever, temperature is above 101.5, your pain is not controlled, your pain is worsening . . "Provider Documentation" section prepared by Uriel Ball. VTE Core Measure Inpt VTE Proph given/why not?: SCD's
--- NOTE | 2016-05-26 12:45 | Medical Student: [facility] ---
Med Student Progress Note Date of Service May 26, 2016. Subjective Pt evaluation today including: conversation w/ patient, lab review, review of studies Pain: none Voiding: no voiding problems 25 year old female with no pertinent past medical history who presented to the ED on 05/24 with altered mental status, vomiting, and headache. She was diagnosed with viral meningitis. No acute events overnight. Patient has some nausea which she thinks is because she is constipated and has not had a bowel movement since her arrival. This is not new for her. She denies shortness of breath, chest pain, palpitations, vomiting, headache, and neck pain. She still feels a "little sizzy" when she walks around. She hopes to go home today. Review of Systems Constitutional: + see HPI, No chills, No fever Respiratory: No dyspnea at rest, No dyspnea on exertion, No shortness of breath , No wheezing Cardiac: No chest pain Abdomen: + constipation, + nausea, No diarrhea, No pain, No vomiting Objective Vital Signs Date Time Temp Pulse Resp B/P Pulse Ox O2 Delivery O2 Flow Rate FiO2 05/26/16 10:59 Room Air 05/26/16 08:02 36.7 68 16 132/87 99 Room Air 05/26/16 00:00 36.5 69 14 119/81 98 Room Air 05/26/16 00:00 Room Air 05/25/16 16:00 98 Room Air 05/25/16 15:57 36.8 73 16 136/82 100 Room Air Physical Exam General Appearance: WD/WN, no apparent distress ENT: hearing grossly normal Neck: supple, no adenopathy, no JVD, no carotid bruits Respiratory/Chest: chest non-tender, lungs clear, normal breath sounds, no respiratory distress, no accessory muscle use Cardiovascular: regular rate, rhythm, no edema, no gallop, no murmur Abdomen: normal bowel sounds, non tender, soft, no organomegaly Neurologic/Psychiatric: alert, normal mood/affect, oriented x 3 Skin: normal color, warm/dry, no rash Laboratory Results Last 24 Hours Test 05/25/16 13:30 05/25/16 16:30 05/25/16 20:29 05/26/16 06:54 Influenza Type A (RT-PCR) Neg for Influ A Influenza Type B (RT-PCR) Neg for Influ B Bedside Glucose 80 mg/dl 88 mg/dl White Blood Count 6.79 K/uL Red Blood Count 4.16 M/uL Hemoglobin 12.4 g/dL Hematocrit 36.8 % Mean Corpuscular Volume 88.5 fL Mean Corpuscular Hemoglobin 29.8 pg Mean Corpuscular Hemoglobin Concent 33.7 g/dl Platelet Count 181 K/uL Mean Platelet Volume 11.8 fL Neutrophils (%) (Auto) 50.6 % Lymphocytes (%) (Auto) 43.7 % Monocytes (%) (Auto) 4.9 % Eosinophils (%) (Auto) 0.4 % Basophils (%) (Auto) 0.3 % Neutrophils # (Auto) 3.43 K/uL Lymphocytes # (Auto) 2.97 K/uL Monocytes # (Auto) 0.33 K/uL Eosinophils # (Auto) 0.03 K/uL Basophils # (Auto) 0.02 K/uL RDW Standard Deviation 42.4 fL RDW Coefficient of Variation 13.1 % Immature Granulocyte % (Auto) 0.1 % Immature Granulocyte # (Auto) 0.01 K/uL Test 05/26/16 07:56 Bedside Glucose 73 mg/dl Assessment and Plan Assessment and Plan: ASSESSMENT 25 year old female with no pertinent past medical history who presented to the ED on 05/24 with altered mental status, vomiting, and headache. She was diagnosed with viral meningitis. HSV and influenza labs were negative. Acyclovir stopped. Patient no longer receiving IV medications and can continue to recover at home. PLAN 1) Meningitis -HSV and influenza labs were negative. Acyclovir was discharged. -Will continue discharge to home today. 2) Left maxillary sinusitis -Not symptomatic. No treatment recommended by ENT. 3) History of hypertension -Not currently taking medications at home. -Not given any blood pressure medications so far due to normal readings. -Case management will set her up with a PCP appointment for blood pressure management. 4) DVT prophylaxis -SCs, ambulate as tolerated. -No medical anticoagulation indicated at this time. 5) Code -full status Discharge planning: home
[2016-05-26 13:04] LABS: CALCIUM 8.3 mg/dl (8.5-10.1); CREATININE 0.61 mg/dl (0.60-1.20); POTASSIUM 3.8 mmol/L (3.5-5.1)
[2016-05-26 13:49] VITALS: BP 132/87; PULSE 68; TEMP 36.7; O2SAT 99
[2016-05-31 10:07] LABS: LYME IGG CSF NO BANDS DETECTED; LYME IGM CSF NO BANDS DETECTED
== END 2016-05-26 14:32 | disposition home or self-care (01) | DRG 76 ==
LOC: ENRESERVDT → ENRESERVTM → EDBD 00:55 → C.EDB 01:00 → C.MSICU 06:20 → EDBEDREQ 05-25 09:06 → C.MS4W 05-25 12:15
PROVIDERS: ADMIT Hospitalist; ATTEND Family Medicine
PROC: 009U3ZX Drainage of Spinal Canal, Percutaneous Approach, Diagnostic (ICD-10-PCS; principal; 2016-05-24)
DX: A87.9 Viral meningitis, unspecified (principal); R41.82 Altered mental status, unspecified; E87.6 Hypokalemia; J32.0 Chronic maxillary sinusitis; R73.9 Hyperglycemia, unspecified; R53.1 Weakness; Z87.891 Personal history of nicotine dependence; Z91.14 Patient's other noncompliance with medication regimen; Z87.59 Personal history of other complications of pregnancy, childbirth and the puerperium; Z79.3 Long term (current) use of hormonal contraceptives

== ENCOUNTER 2016-05-29 08:12 | Emergency (ER) | payer SELFPAY ==
[~2016-05-29] VITALS: Ht 149.9 cm; Wt 78.3 kg
[~2016-05-29 08:12] MED LIST changes: +ASPI-390 PO; -OMEP40CA PO
[2016-05-29 08:24] VITALS: Ht 149.9 cm; Wt 78.3 kg
[2016-05-29] MEDS ORDERED: SODIUM CHLORIDE 0.9% 1000ML 1,000 ML IV STA (08:44)
[2016-05-29] MEDS ORDERED: PROMETHAZINE HCL INJ 25 MG/ML 1 ML VIAL ONE (09:06)
[2016-05-29 09:10] LABS: BASO % 0.3 %; BASO ABS # 0.02 K/uL (0-0.2); COMPLETE YES; EOS % 1.3 %; HEMATOCRIT 42.7 % (37-47); IG% 0.3 %; LYMPH % 20.6 %; MEAN CELL VOLUME 86.6 fL (80-100); MEAN CORPUSCULAR HEMOGLOBIN 30.8 pg (25-34); MEAN CORPUSCULAR HGB CONC 35.6 g/dl (32-36); MEAN PLATELET VOLUME 11.8 fL (7.4-10.4); MONO % 4.8 %; NEUT % 72.7 %; PLATELET COUNT 241 K/uL (130-400); RED BLOOD COUNT 4.93 M/uL (4.2-5.4); WHITE BLOOD COUNT 7.76 K/uL (4.8-10.8)
[2016-05-29 09:25] LABS: ALT/SGPT 30 U/L (12-78); BLOOD UREA NITROGEN 10 mg/dl (7-18); BUN/CREATININE RATIO 14.6 (10-20); C-REACTIVE PROTEIN < 0.29 mg/dl (0-0.29); CARBON DIOXIDE 24 mmol/L (21-32); CHLORIDE 107 mmol/L (98-107); CREATININE 0.71 mg/dl (0.60-1.20); GLUCOSE 95 mg/dl (70-99); POTASSIUM 3.8 mmol/L (3.5-5.1); SODIUM 139 mmol/L (136-145)
[2016-05-29] MEDS ORDERED: MoRPHine SULFATE 2 MG/ML CARP IV STA (09:28)
[2016-05-29 09:35] LABS: ALB/GLOB RATIO 1.3 (0.9-2); ALKALINE PHOSPHATASE 83 U/L (45-117); AST/SGOT 11 U/L (15-37)
[2016-05-29 10:14] LABS: URINE APPEARANCE CLEAR (CLEAR); URINE BILIRUBIN NEG (NEG); URINE COLOR YELLOW; URINE EPITHELIAL CELL AUTO >30 /lpf (0-5); URINE NITRITE NEG (NEG); URINE SPECIFIC GRAVITY 1.002 (1.000-1.030); UROBILINOGEN NEG (NEG)
[2016-05-29 10:15] LABS: MANUAL MICROSCOPIC REQUIRED? NO; REVIEW REQ? NO
[2016-05-29] MEDS ORDERED: HYDR-5688 PO (11:22)
[2016-05-29 11:32] VITALS: BP 128/85; PULSE 84; O2SAT 98
--- NOTE | 2016-06-04 09:12 | EMERGENCY ROOM VISIT NOTE ---
History First contact with patient: 08:16 Chief Complaint: LEG PAIN,LEG INJURY Stated Complaint: LEFT SIDE LEG NUMBNESS History of Present Illness The patient is a 25 year old white female who presents to the Emergency Room with complaints of headache, and left-sided tingling of her leg, arm, and face. Symptoms started this morning when she woke. Patient was recently admitted for viral meningitis on Tuesday, and was discharged to home on Tuesday in stable condition. She states her symptoms on Tuesday were very similar to her current symptoms, but they were in the right arm and leg on Tuesday. Her current headache is similar to her typical migraines. It is of similar intensity and location. No new trauma. She does note that there is a spot in her left visual field that is not usually present with her typical migraines. She is nauseated but has not vomited this morning. Her mother accompanies her today. Patient describes her arm and leg as feeling "rubbery", but she denies any loss of function. She denies any neck or back pain. No fevers or chills. She has had some sweats. No other cold symptoms. She denies any abdominal pain. No known ill contacts. No other complaints. Pain is 7/10. Her mother accompanies her today. Review of Systems REVIEW OF SYSTEM: HEENT: No dizziness, hearing loss, or tinnitus. There is no difficulty swallowing and no oral lesions are present. LYMPH: No adenopathy. PULMONARY: No cough, shortness of breath, sputum production or hemoptysis. CARDIOVASCULAR: No chest pain, palpitations, shortness of breath or peripheral edema. GASTROINTESTINAL: No diarrhea, constipation, or abdominal pain. GENITOURINARY: No dysuria, frequency, urgency or nocturia. NEUROLOGIC: No muscle tenderness, epilepsy or history of neurological problems. Positive history of chronic headaches. MUSCULOSKELETAL: No history of joint tenderness/swelling. No history of arthritis or arthralgias. SKIN: No rashes or lesions. PSYCHIATRIC: No history of depression or mental illness. ENDOCRINE: No history of diabetes, thyroid disorders, or abnormal hair growth. Past Medical/Surgical History Medical Problems: (1) Altered mental status (2) Infectious encephalopathy (3) Left maxillary sinusitis (4) Meningitis (5) induced hypertension (6) Vaginal delivery Family History Significant for hypertension Social History Smoking Status: Never Smoker Smokeless Tobacco Use: No Alcohol Use: none Drug Use: none Marital Status: single Housing Status: lives with family, lives with significant other Occupation Status: unemployed Current/Historical Medications Scheduled Levonorgestrel (Iud) (Mirena), 1 DOSE INT UTER CONTINOUS Scheduled PRN Hydrocodone/Acetaminophen 5MG/325MG ([place] 5MG/325MG), 1-2 TABLET PO Q6 PRN for Pain Allergies Coded Allergies: No Known Allergies (Unverified , 05/29/16) Physical Exam Vital Signs Date Time Temp Pulse Resp B/P Pulse Ox O2 Delivery O2 Flow Rate FiO2 05/29/16 11:32 84 16 128/85 98 05/29/16 09:37 85 16 144/93 97 Room Air 05/29/16 08:13 37.1 105 16 144/97 98 Room Air Physical Exam Gen.: Well-developed, well-nourished, young white female, in no acute distress. Obvious discomfort. Fatigued. Laying on a bed. Alert and oriented. Wearing a mask. Skin:Warm and dry with good turgor. No rashes or lesions. No ecchymosis or erythema. The patient is not diaphoretic. No abrasions. HEENT : Normocephalic atraumatic. Eyes PERRLA, EOMI. No conjunctiva or scleral injection. Funduscopic exam is normal for both eyes. Ears TMs intact bilaterally with good light reflexes. No erythema or bulging. No hemotympanum. Canals are patent. Nares patent bilaterally without turbinate enlargement. Clear nasal drainage. No epistaxis. Oropharynx without erythema or exudate. Uvula midline, oral mucosa moist. No lesions present. Lymphatics are palpated without anterior or posterior chain enlargement or tenderness. Heart: Heart RRR. No MGR. No carotid bruit. Peripheral pulses are 2+. Lungs: Lungs are clear to auscultation. No crackles rhonchi or wheezing. Good air movement. The patient is able to take a deep breath. Abdomen: Abdomen was inspected, auscultated, and palpated. Bowel sounds present x 4. Soft, nontender to palpation. No hepato-splenomegaly. No masses noted. No rebound. No CVA tenderness. Musculoskeletal: Gross motor function to the upper and lower extremities is intact and unremarkable. She is able to move her ankle, knee, and hip. She is able to perform straight leg raise. She has intact motor function to her digits , wrist, elbow, and shoulder on both sides. Strength is 4+/5 for resisted forward flexion, abduction, and internal/external rotation of the left side. Strength is 5/5 for her right arm. No nuchal rigidity. She is able to look fully to the left and right over her shoulders as well as flex and extend her neck. No pain with palpation over the cervical spine. Neurologic: Gross sensation is intact across upper and lower extremities by soft touch. She complains of a blunted sensation in the left leg and left arm. No tingling. DTRs are 2+ at the knees as well as the biceps and triceps and both arms. Cranial nerves II through XII are intact. Medical Decision & Procedures Laboratory Results 05/29/16 08:55 Red Blood Count 4.93, Mean Corpuscular Volume 86.6, Mean Corpuscular Hemoglobin 30.8, Mean Corpuscular Hemoglobin Concent 35.6, Mean Platelet Volume 11.8, Neutrophils (%) (Auto) 72.7, Lymphocytes (%) (Auto) 20.6, Monocytes (%) (Auto) 4.8, Eosinophils (%) (Auto) 1.3, Basophils (%) (Auto) 0.3, Neutrophils # (Auto) 5.65, Lymphocytes # (Auto) 1.60, Monocytes # (Auto) 0.37, Eosinophils # (Auto) 0.10, Basophils # (Auto) 0.02 05/29/16 08:55 Test 05/29/16 08:55 05/29/16 09:50 White Blood Count 7.76 K/uL (4.8-10.8) Red Blood Count 4.93 M/uL (4.2-5.4) Hemoglobin 15.2 g/dL (12.0-16.0) Hematocrit 42.7 % (37-47) Mean Corpuscular Volume 86.6 fL (80-100) Mean Corpuscular Hemoglobin 30.8 pg (25-34) Mean Corpuscular Hemoglobin Concent 35.6 g/dl (32-36) Platelet Count 241 K/uL (130-400) Mean Platelet Volume 11.8 fL (7.4-10.4) Neutrophils (%) (Auto) 72.7 % Lymphocytes (%) (Auto) 20.6 % Monocytes (%) (Auto) 4.8 % Eosinophils (%) (Auto) 1.3 % Basophils (%) (Auto) 0.3 % Neutrophils # (Auto) 5.65 K/uL (1.4-6.5) Lymphocytes # (Auto) 1.60 K/uL (1.2-3.4) Monocytes # (Auto) 0.37 K/uL (0.11-0.59) Eosinophils # (Auto) 0.10 K/uL (0-0.5) Basophils # (Auto) 0.02 K/uL (0-0.2) RDW Standard Deviation 40.6 fL (36.4-46.3) RDW Coefficient of Variation 12.7 % (11.5-14.5) Immature Granulocyte % (Auto) 0.3 % Immature Granulocyte # (Auto) 0.02 K/uL (0.00-0.02) Erythrocyte Sedimentation Rate 3 mm/hr (0-21) Anion Gap 8.0 mmol/L (3-11) Est Creatinine Clear Calc Drug Dose 108.5 ml/min Estimated GFR () 136.2 Estimated GFR (Non- 117.6 BUN/Creatinine Ratio 14.6 (10-20) Calcium Level 9.0 mg/dl (8.5-10.1) Total Bilirubin 0.4 mg/dl (0.2-1) Aspartate Amino Transf (AST/SGOT) 11 U/L (15-37) Alanine Aminotransferase (ALT/SGPT) 30 U/L (12-78) Alkaline Phosphatase 83 U/L (45-117) C-Reactive Protein < 0.29 mg/dl (0-0.29) Total Protein 7.7 gm/dl (6.4-8.2) Albumin 4.4 gm/dl (3.4-5.0) Globulin 3.3 gm/dl (2.5-4.0) Albumin/Globulin Ratio 1.3 (0.9-2) Thyroid Stimulating Hormone (TSH) 1.570 uIu/ml (0.300-4.500) Urine Color YELLOW Urine Appearance CLEAR (CLEAR) Urine pH 7.0 (4.5-7.5) Urine Specific [place] 1.002 (1.000-1.030) Urine Protein NEG (NEG) Urine Glucose (UA) NEG (NEG) Urine Ketones NEG (NEG) Urine Occult Blood TRACE (NEG) Urine Nitrite NEG (NEG) Urine Bilirubin NEG (NEG) Urine Urobilinogen NEG (NEG) Urine Leukocyte Esterase TRACE (NEG) Urine WBC (Auto) 1-5 /hpf (0-5) Urine RBC (Auto) 0-4 /hpf (0-4) Urine Hyaline Casts (Auto) 0 /lpf (0-5) Urine Epithelial Cells (Auto) >30 /lpf (0-5) Urine Bacteria (Auto) NEG (NEG) CBC, chem panel, TSH, sedimentation rate, C-reactive protein, and UA were obtained. They are all unremarkable. Medications Administered Medications (Trade) Dose Ordered Sig/Joshua Route Start Time Stop Time Status Last Admin Dose Admin Sodium Chloride (Nss 1000ml) 1,000 ml @ 999 mls/hr Q1H1M STAT IV 05/29/16 08:44 05/29/16 09:44 DC 05/29/16 09:06 999 MLS/HR Promethazine HCl (Phenergan Inj) 25 mg STK-MED ONCE .ROUTE 05/29/16 09:06 05/29/16 09:07 DC 05/29/16 09:06 25 MG Morphine Sulfate (MoRPHine SULFATE INJ) 2 mg NOW STAT IV 05/29/16 09:28 05/29/16 09:29 DC 05/29/16 09:36 2 MG 1 L normal sterile saline IV bolus, Phenergan 25 mg IV, morphine 2 mg IV ED Course Patient and her mother were educated regarding today's findings. Conservative care measures were discussed. IV was established. Labs were obtained. Patient was placed on a monitor. She remained stable while in the ED. She was given 1 L normal sterile saline IV bolus as well as morphine 2 mg IV and Phenergan 25 mg IV. She was able to rest. She was reassured that I find nothing abnormal on her lab work. I do not think this is an exacerbation of her viral meningitis. It may be residual recovery. She will need to follow-up with her family doctor. Call Tuesday for an appointment. She will not be able to return to work until cleared. She may use Excedrin for her headache. Rest, quiet dark room. Maintain hydration. Sunglasses may help. Prescription was provided for [place] 5 mg to be used for any severe headache not relieved by the Excedrin. Driving precautions were given. Patient was seen in conjunction with Dr. Garnica, who also evaluated the patient and concurred with today's diagnosis and treatment plan. Impression Primary Impression: Headache Additional Impression: Radicular syndrome of left leg Departure Information Prescriptions Hydrocodone/Acetaminophen 5MG/325MG ([place] 5MG/325MG) Tab 1-2 TABLET PO Q6 Y for Pain, #10 TAB For Initial Treatment Prov: Curly Mott,P.A. 05/29/16 Referrals Uriel Ball MD (PCP) Patient Instructions My [facility] Problem Qualifiers Primary Impression: Headache Headache type: unspecified Headache chronicity pattern: chronic headache Intractability: not intractable Qualified Codes: R51 - Headache
== END 2016-05-29 11:34 | disposition home or self-care (01) ==
LOC: C.EDB 08:13 → C.EDA 11:34
DX: R51 Headache (principal); M54.10 Radiculopathy, site unspecified; Z82.49 Family history of ischemic heart disease and other diseases of the circulatory system

== ENCOUNTER 2017-03-19 19:53 | Emergency (ER) | payer OTHER ==
[~2017-03-19] VITALS: Ht 149.9 cm; Wt 82.3 kg
[~2017-03-19 19:53] MED LIST changes: -ASPI-390 PO; +LEVO1IUD2 INT UTER; -LEVOIUD INT UTER
[2017-03-19 19:57] VITALS: Ht 149.9 cm; Wt 82.3 kg
[2017-03-19] MEDS ORDERED: INDSR/60 PO (20:26)
[2017-03-19] MEDS ORDERED: LXP10 PO (20:26)
[2017-03-19] MEDS ORDERED: ASPI-391 PO (20:26)
[2017-03-19] MEDS ORDERED: PROCHLORPERAZINE 5 MG/ML 2 ML VIAL IV STA (20:41)
[2017-03-19] MEDS ORDERED: KETOROLAC TROMETHAMINE 30 MG/ML VIAL IV STA (20:41)
[2017-03-19] MEDS ORDERED: DiphenhydrAMINE HCL 50 MG/ML VIAL IV STA (20:41)
[2017-03-19] MEDS ORDERED: SODIUM CHLORIDE 0.9% 1000ML 1,000 ML IV ONE (20:45)
[2017-03-19 21:27] LABS: BASO % 0.2 %; BASO ABS # 0.02 K/uL (0-0.2); EOS % 0.2 %; EOS ABS # 0.03 K/uL (0-0.5); HEMATOCRIT 41.2 % (37-47); HEMOGLOBIN 14.5 g/dL (12.0-16.0); IG# 0.03 K/uL (0.00-0.02); LYMPH % 20.3 %; MEAN CELL VOLUME 87.8 fL (80-100); MEAN CORPUSCULAR HEMOGLOBIN 30.9 pg (25-34); MEAN CORPUSCULAR HGB CONC 35.2 g/dl (32-36); MONO % 5.2 %; MONO ABS # 0.64 K/uL (0.11-0.59); NEUT % 73.9 %; PLATELET COUNT 263 K/uL (130-400); RED CELL DISTRIBUTION WIDTH CV 12.7 % (11.5-14.5); RED CELL DISTRIBUTION WIDTH SD 40.6 fL (36.4-46.3); WHITE BLOOD COUNT 12.32 K/uL (4.8-10.8)
--- NOTE | 2017-03-19 21:42 | DIAGNOSTIC IMAGING REPORT ---
HEAD CT NONCONTRAST CT DOSE: 537.48 mGy.cm HISTORY: Headache TECHNIQUE: Multiaxial CT images of the head were performed without the use of intravenous contrast. Automated exposure control was utilized for this study. A dose lowering technique was utilized adhering to the principles of ALARA. Comparison: Head CT 05/24/2016. Findings: Mild mucosal thickening within the left ethmoid air cells and left maxillary sinus. The mastoid air cells are clear. The calvarium and skull base are intact. The ventricles and sulci are within normal limits. There is no mass, hematoma, midline shift, or acute infarct. Impression: No acute intracranial abnormality. Electronically signed by: Babatunde Peña M.D. 03/19/2017 9:40 PM Dictated Date/Time: 03/19/2017 9:38 PM
[2017-03-19 21:43] LABS: ALBUMIN 4.1 gm/dl (3.4-5.0); CALCIUM 9.5 mg/dl (8.5-10.1); CREATININE 0.7 mg/dl (0.60-1.20); POTASSIUM 3.7 mmol/L (3.5-5.1)
[2017-03-19 21:45] LABS: TOTAL PROTEIN 7.8 gm/dl (6.4-8.2)
[2017-03-19 23:05] VITALS: BP 120/82; PULSE 70; TEMP 36.6; O2SAT 98
--- NOTE | 2017-03-20 16:02 | EMERGENCY ROOM VISIT NOTE ---
History First contact with patient: 20:08 Chief Complaint: HEADACHE Stated Complaint: MIGRAINE History of Present Illness The patient is a 26 year old female who presents to the Emergency Room with complaints of headache symptoms for the past one day. The patient has headaches off and on, but usually does not come to the emergency department for this. This is not the worst headache of her life. The patient has not had recent flulike symptoms. She does report a past history of viral meningitis, and is concerned for the same. She is without nausea or vomiting. No chest pain, chest tightness, or shortness of breath. No photophobia or rash. She rates her discomfort a 7/10 and has not taken anything [id number] for her symptoms. Review of Systems More than 10 systems were reviewed and otherwise negative with the exception of history of present illness. Past Medical/Surgical History Medical Problems: (1) Altered mental status (2) Infectious encephalopathy (3) Left maxillary sinusitis (4) Meningitis (5) induced hypertension (6) Vaginal delivery Family History No pertinent family history Social History Smoking Status: Never Smoker Alcohol Use: none Drug Use: none Marital Status: single Housing Status: lives with family, lives with significant other Occupation Status: unemployed Current/Historical Medications Scheduled Escitalopram Oxalate (Escitalopram Oxalate), 10 MG PO DAILY Levonorgestrel (Iud) (Mirena), 1 DOSE INT UTER CONTINOUS Propranolol Hcl (Propranolol ER), 60 MG PO DAILY Scheduled PRN [id number] (Excedrin Extra Strength), 1-2 TABS PO q3-4h PRN for Headache Physical Exam Vital Signs Date Time Temp Pulse Resp B/P (MAP) Pulse Ox O2 Delivery O2 Flow Rate FiO2 03/19/17 23:05 36.6 70 18 120/82 98 Room Air 03/19/17 22:12 36.8 71 18 123/84 98 Room Air 03/19/17 19:57 37.1 77 18 139/90 98 Room Air Physical Exam VITALS: Vitals are noted on the nurse's note and reviewed by myself. Vital signs stable. GENERAL: Well-developed, well-nourished, white female who appears uncomfortable but nontoxic. HEAD: Normocephalic atraumatic. EARS: External ear normal. External auditory canals clear, tympanic membranes pearly eller without erythema or effusion bilaterally. EYES: Pupils equal round and reactive to light and accommodation. Conjunctivae without injection, sclerae without icterus. Extraocular movements intact. NOSE: Patent, turbinates without inflammation or discharge. MOUTH: Mucous membranes moist. Tonsils are not enlarged. Pharynx without erythema, blood, or exudate. Uvula midline. Airway patent. NECK: Supple without nuchal rigidity. No lymphadenopathy. No thyromegaly. Cervical spine is nontender. Negative Brudzinski's and Kernig's. No meningismus HEART: Regular rate and rhythm without murmurs gallops or rubs. LUNGS: Clear to auscultation bilaterally without wheezes, rales or rhonchi. No retractions or accessory muscle use. NEURO: Patient was alert and oriented to person place and time. CN II through XII grossly intact. SKIN: The skin was without rashes, erythema, edema, or bruising. Capillary refill less than 2 seconds. Medical Decision & Procedures ER Provider Diagnostic Interpretation: HEAD CT NONCONTRAST CT DOSE: 537.48 mGy.cm HISTORY: Headache TECHNIQUE: Multiaxial CT images of the head were performed without the use of intravenous contrast. Automated exposure control was utilized for this study. A dose lowering technique was utilized adhering to the principles of ALARA. Comparison: Head CT 05/24/2016. Findings: Mild mucosal thickening within the left ethmoid air cells and left maxillary sinus. The mastoid air cells are clear. The calvarium and skull base are intact. The ventricles and sulci are within normal limits. There is no mass, hematoma, midline shift, or acute infarct. Impression: No acute intracranial abnormality. Laboratory Results 03/19/17 21:17 Red Blood Count 4.69, Mean Corpuscular Volume 87.8, Mean Corpuscular Hemoglobin 30.9, Mean Corpuscular Hemoglobin Concent 35.2, Mean Platelet Volume 11.0, Neutrophils (%) (Auto) 73.9, Lymphocytes (%) (Auto) 20.3, Monocytes (%) (Auto) 5.2, Eosinophils (%) (Auto) 0.2, Basophils (%) (Auto) 0.2, Neutrophils # (Auto) 9.10, Lymphocytes # (Auto) 2.50, Monocytes # (Auto) 0.64, Eosinophils # (Auto) 0.03, Basophils # (Auto) 0.02 03/19/17 21:17 Test 1/27/18 21:17 White Blood Count 12.32 K/uL (4.8-10.8) Red Blood Count 4.69 M/uL (4.2-5.4) Hemoglobin 14.5 g/dL (12.0-16.0) Hematocrit 41.2 % (37-47) Mean Corpuscular Volume 87.8 fL (80-100) Mean Corpuscular Hemoglobin 30.9 pg (25-34) Mean Corpuscular Hemoglobin Concent 35.2 g/dl (32-36) Platelet Count 263 K/uL (130-400) Mean Platelet Volume 11.0 fL (7.4-10.4) Neutrophils (%) (Auto) 73.9 % Lymphocytes (%) (Auto) 20.3 % Monocytes (%) (Auto) 5.2 % Eosinophils (%) (Auto) 0.2 % Basophils (%) (Auto) 0.2 % Neutrophils # (Auto) 9.10 K/uL (1.4-6.5) Lymphocytes # (Auto) 2.50 K/uL (1.2-3.4) Monocytes # (Auto) 0.64 K/uL (0.11-0.59) Eosinophils # (Auto) 0.03 K/uL (0-0.5) Basophils # (Auto) 0.02 K/uL (0-0.2) RDW Standard Deviation 40.6 fL (36.4-46.3) RDW Coefficient of Variation 12.7 % (11.5-14.5) Immature Granulocyte % (Auto) 0.2 % Immature Granulocyte # (Auto) 0.03 K/uL (0.00-0.02) Urine Color YELLOW Urine Appearance CLOUDY (CLEAR) Urine pH 6.0 (4.5-7.5) Urine Specific [place] 1.022 (1.000-1.030) Urine Protein NEG (NEG) Urine Glucose (UA) NEG (NEG) Urine Ketones NEG (NEG) Urine Occult Blood NEG (NEG) Urine Nitrite NEG (NEG) Urine Bilirubin NEG (NEG) Urine Urobilinogen NEG (NEG) Urine Leukocyte Esterase SMALL (NEG) Urine WBC (Auto) 10-30 /hpf (0-5) Urine RBC (Auto) 0-4 /hpf (0-4) Urine Hyaline Casts (Auto) 5-10 /lpf (0-5) Urine Epithelial Cells (Auto) >30 /lpf (0-5) Urine Bacteria (Auto) 1+ (NEG) Urine Test NEG (NEG) Anion Gap 8.0 mmol/L (3-11) Est Creatinine Clear Calc Drug Dose 112.2 ml/min Estimated GFR () 137.6 Estimated GFR (Non- 118.7 BUN/Creatinine Ratio 11.8 (10-20) Calcium Level 9.5 mg/dl (8.5-10.1) Total Bilirubin 0.5 mg/dl (0.2-1) Aspartate Amino Transf (AST/SGOT) 12 U/L (15-37) Alanine Aminotransferase (ALT/SGPT) 20 U/L (12-78) Alkaline Phosphatase 84 U/L (45-117) Total Protein 7.8 gm/dl (6.4-8.2) Albumin 4.1 gm/dl (3.4-5.0) Globulin 3.7 gm/dl (2.5-4.0) Albumin/Globulin Ratio 1.1 (0.9-2) Lyme Disease IgG Antibody NEG (NEG) Lyme Disease IgM Antibody NEG (NEG) Medications Administered Medications (Trade) Dose Ordered Sig/Joshua Route Start Time Stop Time Status Last Admin Dose Admin Diphenhydramine HCl (Benadryl Inj) 50 mg NOW STAT IV 03/19/17 20:41 03/19/17 20:43 DC 03/19/17 21:10 50 MG Prochlorperazine Edisylate (Compazine Inj) 10 mg NOW STAT IV 03/19/17 20:41 03/19/17 20:43 DC 03/19/17 21:10 10 MG Sodium Chloride 1,000 ml @ 999 mls/hr Q1H1M ONCE IV 03/19/17 20:45 03/19/17 21:45 DC 03/19/17 21:13 999 MLS/HR Ketorolac Tromethamine (Toradol Inj) 30 mg NOW STAT IV 03/19/17 20:41 03/19/17 20:44 DC 03/19/17 21:10 30 MG ED Course Physical exam and history were performed. Nursing notes, EMR, and Medication List were personally reviewed. Patient appears to have headache symptoms for the past one day. She does report a past history of viral meningitis, however does not have a physical exam that correlates with this process. IV access was established and labs were obtained. The patient was hydrated with IV Toradol, IV Benadryl, IV Compazine, and IV fluids. A CT scan of the head was performed. The patient's blood work is as above and was reviewed. She has a minimally elevated white blood cell count of 12,000. She does not have a significant anemia, bandemia, or gross electrolyte imbalance. Transaminases are nondiagnostic. Lyme is negative. CT scan does not show acute process. On reevaluation the patient had essentially 100% resolution of her symptoms. She was able to rest very comfortably in her bed, stand, walk, and use the bathroom. She was able to watch television and converse as normal. She continues without meningeal symptoms. I did discuss possibility of lumbar puncture, right utilizing shirt decision making we elected to defer this. Overall the patient appears well for discharge home. I suspect that she likely has a headache or migraine variant. She understands the importance of monitoring her symptoms, and returning if symptoms of altered worsen. She is to follow with her primary care physician in the next few days and was otherwise invited back sooner. 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 The chart was completed utilizing [employer] Voice Recognition Software. Grammatical errors, random word insertions, pronoun errors, and incomplete sentences are an occasional consequence of this system due to software limitations, ambient noise, and hardware issues. Any formal questions or concerns about the content, text, or information contained within the body of this dictation should be directly addressed to the provider for clarification. . Medical Decision The differential diagnosis includes, but is not limited to: acute intracranial bleed, meningitis, encephalitis, mass or mass effect, sinusitis, infection, tumor, headache, temporal arteritis and carbon monoxide exposure, and migraine. Impression Primary Impression: Headache Departure Information Dispostion Home / Self-Care Condition GOOD Referrals Amy Mcbride M.D. (PCP) Forms HOME CARE DOCUMENTATION FORM, IMPORTANT VISIT INFORMATION Patient Instructions My [facility] Additional Instructions You were seen and evaluated today on an emergency basis only. This is not a substitute for, or an effort to provide, complete comprehensive medical care. It is not possible to recognize and treat all injuries or illnesses in a single emergency department visit. For this reason it is recommended that you followup with your primary care physician or neurologist this week for ongoing care and evaluation. DO NOT drive, drink alcohol, operate machinery, or perform dangerous activities today. You were given medications in the ER that can affect your ability to safely function or operate a vehicle. Rest today in a quiet, peaceful, dark environment and get a full 8-10 hrs of sleep tonight. Avoid loud noises, smoke/smoking, alcohol, bright lights, stress, or physical exertion today to minimize the chance the headache may return. Continue current medications. Ibuprofen(Motrin, Advil) may be used for fever or pain. Use 600mg every six hours as needed. Take with food. Avoid using more than 2400mg in a 24 hour period. Do not use 2400mg per day for more than three consecutive days without physician direction. Prolonged inappropriate use can lead to stomach upset or ulcers. (AND/OR) Acetaminophen(Tylenol) may be used for fever or pain. Use 1000mg every six hours as needed. Avoid using more than 4000mg in a 24 hour period. Return to the ER for passing out, worsening headache, vision problems, neck stiffness/pain, fevers, vomiting, worsening of your condition, or as needed.
== END 2017-03-19 23:06 | disposition home or self-care (01) ==
LOC: C.EDB 19:54
DX: R51 Headache (principal)

== ENCOUNTER 2017-06-25 13:24 | Emergency (ER) | payer OTHER ==
[~2017-06-25] VITALS: Ht 149.9 cm; Wt 80.0 kg
[~2017-06-25 13:24] MED LIST changes: +ASPI-391 PO; +INDSR/60 PO; +LXP10 PO
[2017-06-25 13:32] VITALS: TEMP 36.7; Ht 149.9 cm; Wt 80.0 kg
[2017-06-25] MEDS ORDERED: LIDOCAINE 1% BUFFERED INJ 5 ML VIAL ONE (13:39)
[2017-06-25 14:26] VITALS: BP 141/89; PULSE 79; O2SAT 99
--- NOTE | 2017-06-25 14:33 | EMERGENCY ROOM VISIT NOTE ---
History First contact with patient: 13:32 Chief Complaint: LACERATION/CUT (SUT/DERMABOND) Stated Complaint: CUT FINGER Nursing Triage Summary: triage note: pt reports while cleaning a knife she cut her right thumb. dressing to right thumb dry and intact in triage unable to visulalize. History of Present Illness The patient is a 26 year old female who presents to the Emergency Room with complaints of a laceration to her right thumb that happened approximately 1 hour prior to arrival. The patient was cleaning a knife when she accidentally cut her finger. The patient reports significant bleeding from the wound. She denies any loss of function, paresthesias or numbness of the finger. The patient is left-hand dominant, and rates her discomfort a 3 out of 10. Tetanus immunization is up-to-date. Review of Systems 6 system review was performed and was negative except for pertinent positives and negatives as indicated in history of present illness Past Medical/Surgical History Medical Problems: (1) Altered mental status (2) Infectious encephalopathy (3) Left maxillary sinusitis (4) Meningitis (5) induced hypertension (6) Vaginal delivery Family History FH: hypertension Social History Smoking Status: Never Smoker Alcohol Use: none Drug Use: none Marital Status: single Housing Status: lives with family, lives with significant other Occupation Status: unemployed Current/Historical Medications Scheduled Levonorgestrel (Iud) (Mirena), 1 DOSE INT UTER CONTINOUS Propranolol Hcl (Propranolol ER), 60 MG PO DAILY Scheduled PRN Ppwcnfe-Oazrudwvpbqje-Qibrrnrk (Excedrin Extra Strength), 1-2 TABS PO q3-4h PRN for Headache Physical Exam Vital Signs Date Time Temp Pulse Resp B/P (MAP) Pulse Ox O2 Delivery O2 Flow Rate FiO2 5/5/18 13:32 36.7 94 18 152/87 99 Room Air Physical Exam CONSTITUTIONAL: Healthy and well nourished. Alert and oriented X 3 with positive affect. She is quite anxious. HEENT: Normocephalic, atraumatic. Pupils equal, round and reactive. MUSCULOSKELETAL: Examination of the right thumb shows a 2 cm laceration of the digital pad with mild bleeding. Patient is able to flex and extend the IP joint. Capillary refill is less than 2 seconds. INTEGUMENTARY: No rash or other significant dermatologic conditions noted. NEUROLOGIC: Right thumb is sensory intact. Medical Decision & Procedures Procedure Laceration repair was performed under digital block anesthesia after receiving verbal consent from the patient. Using buffered 1% lidocaine without epinephrine, good digital block anesthesia was administered. The peripheral tissue was cleansed with iodine, then the wound was copiously irrigated with approximately 100 cc of normal saline. The wound was then approximated using 4- 0 nylon simple interrupted sutures. A bacitracin dressing was applied. ED Course Patient history and physical exam were performed. Nurse's notes were reviewed. Vital signs were reviewed and were normal. Laceration repair was performed under digital block anesthesia. The patient was provided additional verbal and written wound care instructions. Ice and elevation for swelling. Ibuprofen or Tylenol as needed for pain relief. Suture removal in 12-14 days, or seek reevaluation sooner for any signs of wound infection. The patient was happy with plan of care, voiced understanding of all discharge instructions, and denied any pain at the time of discharge. Medical Decision Medication Reconcilliation Current Medication List: was personally reviewed by me Blood Pressure Screening Patient's blood pressure: Normal blood pressure Impression Primary Impression: Thumb laceration Departure Information Dispostion Home / Self-Care Forms HOME CARE DOCUMENTATION FORM, IMPORTANT VISIT INFORMATION Patient Instructions My [facility] Additional Instructions Keep wound clean and dry. Do not allow any crusting or dried blood to accumulate on sutures. If this occurs, use a 1:1 solution of hydrogen peroxide/ water on a Q-tip to clean the wound. Use an antibiotic ointment for 3-4 days, then let wound dry. Suture removal in 12-14 days. Return sooner for any signs of infection (increasing redness, swelling, drainage). Ice and elevate for swelling and pain. Ibuprofen 600 mg and Tylenol 1000 mg every 6 hrs for pain. Problem Qualifiers Primary Impression: Thumb laceration Encounter type: initial encounter Damage to nail status: without damage Foreign body presence: without foreign body Laterality: right Qualified Codes: S61.011A - Laceration without foreign body of right thumb without damage to nail, initial encounter
== END 2017-06-25 14:39 | disposition home or self-care (01) ==
LOC: C.EDB 13:25 → C.EDD 14:39
DX: S61.011A Laceration without foreign body of right thumb without damage to nail, initial encounter (principal); W26.0XXA Contact with knife, initial encounter; Z79.899 Other long term (current) drug therapy